=== PATIENT | male | born 1970 | race Caucasian/White ===

== ENCOUNTER 2021-03-11 13:26 | Inpatient (IN) | payer BC, SELFPAY ==
[2021-03-11] VITALS (22 sets, daily range): BP systolic 128–166; BP diastolic 62–119; PULSE 57–106; RESP 16–41; TEMP 37.1–37.3; O2SAT 88–95; BMI 34.2
--- NOTE | 2021-03-11 13:34 | XR_ITS ---
WS: [id number] PORTABLE CHEST HISTORY: dyspnea, cough COMPARISON: None available. Lungs are clear and well expanded. No pleural effusion or pneumothorax. Cardiac size: Normal. Mediastinum/Aorta: Normal mediastinum. No osseous abnormality seen. XR/XR chest 1V portable [id number] IMPRESSION: Unremarkable portable chest.
[2021-03-11] MEDS: albuterol 8 gm MDI 2 PUFF INHALATION (13:56)
[2021-03-11 14:09] LABS: ABG PCO2 31.4 mmHg (35-45); Alveolar-Arterial Oxygen Gradi 21.8 mmHg (5-10); Arterial Blood Gas Hematocrit 47.9 % (42-52); Base Excess ABG 1.7 mmol/L (-2.0-2.0); Blood Gas Allen Test Pos; Blood Gas Operator Identificat CAK; Blood Gas Sample Site Radial, left; Blood Gas Sample Type Arterial; Carboxyhemoglobin 0.7 %THgb (0.4-20.1); HCO3 ABG 24.2 mmol/L (22-26); HGB O2 Sat 94.8 % (95-100); Ionized Calcium Level - ABG 1.1 mmol/L (1.1-1.4); Methemoglobin 0.4 % (0.4-1.5); Oxygen Device NC; Oxygen Saturation ABG 95.8; PO2 ABG 76.6 mmHg (80.0-100.0); Potassium Level - ABG 3.1 mmol/L (3.5-5.0); Total Hemoglobin 15.6 g/dL (14-18)
[2021-03-11] MEDS: dexamethasone 4 mg/mL INJ 6 MG IVP (14:12)
[2021-03-11 14:18] LABS: Alanine Aminotransferase 84 U/L (0-41); Albumin Level 3.7 g/dL (3.5-5.2); Alkaline Phosphatase 80 IU/L (40-130); Anion Gap 19.6 (5-19); Aspartate Amino Transferase 91 U/L (0-40); Blood Urea Nitrogen 10 mg/dL (6-20); Calcium 7.8 mg/dL (8.5-10.5); Carbon Dioxide 22 mmol/L (22-29); Chloride 97 mmol/L (98-107); Globulin 2.7 g/dL (1.3-4.6); Glomerular Filtration Rate 140.9 mL/min (90-130); Glucose 135 mg/dL (65-115); Osmolality Calculated 281 mOsm/kg (285-295); Potassium 3.6 mmol/L (3.5-5.1); Sodium 135 mmol/L (136-145); Total Bilirubin 0.7 mg/dL (0.15-1.2); Total Protein 6.4 g/dL (6.6-8.7)
[2021-03-11 14:19] LABS: Lactic Sepsis W/Reflex 1.7 mmol/L (0.5-2.2)
--- NOTE | 2021-03-11 14:21 | ED_ITS ---
HPI - COVID General: Chief Complaint: COVID symptoms Stated Complaint: DYSPNEA, COVID + Time Seen by Provider: 03/11/21 13:34 Triage information: Has fever, cough or shortness of breath . Exposure to COVID + person last 14 days History of Present Illness: HPI Narrative: 51-year-old male presents emergency room with complaint of increasing shortness of breath and cough along with an ostomy and diarrhea began approximately 1 week ago he tested positive for Covid then he had symptoms for for 5 days prior to that. MD complaint: known COVID positive Prior covid testing: yes, results known Prior testing date: 03/05/21 COVID 19 common symptoms: positive fever(s), chills, cough, productive cough, dyspnea, fatigue, loss of sense of smell and/or taste, nasal congestion, vomiting and diarrhea COVID 19 other sytmptoms: positive chest pain, requiring oxygen, requiring more oxygen, respiratory distress and lethargy Onset (ago): day(s) (-) Severity: moderate and rapidly worsening Pertinent comorbid conditions: obesity Treatment prior to arrival: none, steroids and oxygen COVID Results: No Data to Display Review of Systems Const: Reports: fever(s), chills and fatigue ENMT: Reports: nasal congestion Card: Reports: chest pain Resp: Reports: dyspnea and productive cough GI: Reports: vomiting and diarrhea : Denies: flank pain, dysuria, urinary frequency or urinary urgency Skin/Breast: Denies: rash or pruritus Physical Exam Const: COMMON NORMALS: no acute distress GENERAL APPEARANCE: cooperative and comfortable ORIENTATION/CONSCIOUSNESS: Yes awake, Yes oriented to person, Yes oriented to place and Yes oriented to time HENMT: COMMON NORMALS: normocephalic, atraumatic and hearing grossly normal bilaterally HEAD & SCALP: normocephalic and atraumatic Resp: EFFORT & INSPECTION: Yes abnormal respiratory pattern, Yes tachypneic, Yes respiratory distress and Yes Actively coughing AUSCULTATION: rales and wheezes Cardio: COMMON NORMALS: regular rhythm and No murmurs present (Cardio) RATE: tachycardic RHYTHM: regular rhythm GI: COMMON NORMALS: Soft to palpation and No hepatosplenomegaly present AUSCULTATION: Yes normoactive bowel sounds PALPATION: Yes Soft to palpation, No Tenderness to palpation present (GI), No Guarding due to palpation present (GI) and Yes No hepatosplenomegaly present Extremity: COMMON NORMALS: normal to inspection, capillary refill normal, no clubbing, cyanosis or edema, no calf tenderness and no pedal edema Neuro: SENSORIUM/ORIENTATION: Yes oriented to person, Yes oriented to place and Yes oriented to time Skin: COMMON NORMALS: no rashes or lesions noted GENERAL SKIN EXAM: no rashes or lesions noted Course Vital Signs: Vital signs: Vital Signs Temperature 98.6 F 03/12/21 04:00 Pulse Rate 56 L 03/12/21 06:00 Respiratory Rate 17 03/12/21 05:32 Blood Pressure 107/75 03/12/21 04:45 Pulse Oximetry 93 03/12/21 05:32 MDM - COVID MDM Narrative: Medical decision making narrative: Worsening Covid pneumonitis with hypoxia requiring oxygen supplementation approximately 10 days into course of symptoms. Recommend patient be admitted discussed the hospitalist orders written start remdesivir as well as dexamethasone continue oxygen support. Lab Data: Labs: Lab Results 03/11/21 03/11/21 03/11/21 Range/Units 13:42 13:42 13:42 WBC 8.7 (4.0-10.0) 10^3/ uL RBC 6.61 H (4.1-5.3) 10^6/u L Hgb 19.1 H (11.7-16.6) g/dL Hct 52.8 H (42.0-52.0) % MCV 79.9 L (80-94) fL MCH 28.9 (28.0-34.0) pg MCHC 36.2 H (30.0-36.0) g/dL RDW 13.0 (12.1-15.1) % Plt Count 217 (130-400) 10^3/c mm MPV 10.2 (7.4-10.4) fL Neut % (Auto) 81.3 % Lymph % (Auto) 14.4 % Power % (Auto) 3.2 % Eos % (Auto) 0.1 % Baso % (Auto) 0.2 % Neut # (Auto) 7.09 (1.8-7.7) 10^3/u L Lymph # (Auto) 1.3 (0.8-4.8) 10^3/u L Power # (Auto) 0.3 (0.2-0.9) 10^3/u L Eos # (Auto) 0.0 (0.0-0.8) 10^3/u L Baso # (Auto) 0.0 (0.0-0.1) 10^3/u L Nucleated RBC % (a uto) 0 % Nucleated RBCs # 0.0 /100WBC D-Dimer Cancelled Specimen Type Sample Site ABG pH (7.35-7.45) ABG pCO2 (35-45) mmHg ABG pO2 (80.0-100.0) mmH g ABG HCO3 (22-26) mmol/L ABG O2 Saturation ABG Base Excess (-2.0-2.0) mmol/ L Aneesh Test A-a O2 Gradient (5-10) mmHg Hematocrit (42-52) % Hgb O2 Saturation (95-100) % Carboxyhemoglobin (0.4-20.1) %THgb Methemoglobin (0.4-1.5) % Total Hemoglobin (14-18) g/dL Ionized Calcium (1.1-1.4) mmol/L O2 Delivery Device O2 Liters/Min % FiO2 % Blueprint Machine Operator ID Sodium 135 L (136-145) mmol/L Potassium 3.6 (3.5-5.1) mmol/L Chloride 97 L (98-107) mmol/L Carbon Dioxide 22 (22-29) mmol/L Anion Gap 19.6 H (5-19) BUN 10 (6-20) mg/dL Creatinine 0.6 L (0.7-1.2) mg/dL GFR Calculation 140.9 H (90-130) mL/min Glucose 135 H (65-115) mg/dL Calculated Osmolal ity 281 L (285-295) mOsm/k g Lactic Acid (0.5-2.2) mmol/L Calcium 7.8 L (8.5-10.5) mg/dL Total Bilirubin 0.7 (0.15-1.2) mg/dL AST 91 H (0-40) U/L ALT 84 H (0-41) U/L Alkaline Phosphata se 80 (40-130) IU/L C-Reactive Protein (0.0-4.9) mg/L Total Protein 6.4 L (6.6-8.7) g/dL Albumin 3.7 (3.5-5.2) g/dL Globulin 2.7 (1.3-4.6) g/dL 03/11/21 03/11/21 03/11/21 Range/Units 13:42 13:42 13:45 WBC (4.0-10.0) 10^3/ uL RBC (4.1-5.3) 10^6/u L Hgb (11.7-16.6) g/dL Hct (42.0-52.0) % MCV (80-94) fL MCH (28.0-34.0) pg MCHC (30.0-36.0) g/dL RDW (12.1-15.1) % Plt Count (130-400) 10^3/c mm MPV (7.4-10.4) fL Neut % (Auto) % Lymph % (Auto) % Power % (Auto) % Eos % (Auto) % Baso % (Auto) % Neut # (Auto) (1.8-7.7) 10^3/u L Lymph # (Auto) (0.8-4.8) 10^3/u L Power # (Auto) (0.2-0.9) 10^3/u L Eos # (Auto) (0.0-0.8) 10^3/u L Baso # (Auto) (0.0-0.1) 10^3/u L Nucleated RBC % (a uto) % Nucleated RBCs # /100WBC D-Dimer 1.72 H Specimen Type Sample Site ABG pH (7.35-7.45) ABG pCO2 (35-45) mmHg ABG pO2 (80.0-100.0) mmH g ABG HCO3 (22-26) mmol/L ABG O2 Saturation ABG Base Excess (-2.0-2.0) mmol/ L Aneesh Test A-a O2 Gradient (5-10) mmHg Hematocrit (42-52) % Hgb O2 Saturation (95-100) % Carboxyhemoglobin (0.4-20.1) %THgb Methemoglobin (0.4-1.5) % Total Hemoglobin (14-18) g/dL Ionized Calcium (1.1-1.4) mmol/L O2 Delivery Device O2 Liters/Min % FiO2 % Blueprint Machine Operator ID Sodium (136-145) mmol/L Potassium (3.5-5.1) mmol/L Chloride (98-107) mmol/L Carbon Dioxide (22-29) mmol/L Anion Gap (5-19) BUN (6-20) mg/dL Creatinine (0.7-1.2) mg/dL GFR Calculation (90-130) mL/min Glucose (65-115) mg/dL Calculated Osmolal ity (285-295) mOsm/k g Lactic Acid 1.7 (0.5-2.2) mmol/L Calcium (8.5-10.5) mg/dL Total Bilirubin (0.15-1.2) mg/dL AST (0-40) U/L ALT (0-41) U/L Alkaline Phosphata se (40-130) IU/L C-Reactive Protein 53.2 H (0.0-4.9) mg/L Total Protein (6.6-8.7) g/dL Albumin (3.5-5.2) g/dL Globulin (1.3-4.6) g/dL 03/11/21 Range/Units 13:57 WBC (4.0-10.0) 10^3/ uL RBC (4.1-5.3) 10^6/u L Hgb (11.7-16.6) g/dL Hct (42.0-52.0) % MCV (80-94) fL MCH (28.0-34.0) pg MCHC (30.0-36.0) g/dL RDW (12.1-15.1) % Plt Count (130-400) 10^3/c mm MPV (7.4-10.4) fL Neut % (Auto) % Lymph % (Auto) % Power % (Auto) % Eos % (Auto) % Baso % (Auto) % Neut # (Auto) (1.8-7.7) 10^3/u L Lymph # (Auto) (0.8-4.8) 10^3/u L Power # (Auto) (0.2-0.9) 10^3/u L Eos # (Auto) (0.0-0.8) 10^3/u L Baso # (Auto) (0.0-0.1) 10^3/u L Nucleated RBC % (a uto) % Nucleated RBCs # /100WBC D-Dimer Specimen Type Arterial Sample Site Radial, left ABG pH 7.50 H (7.35-7.45) ABG pCO2 31.4 L (35-45) mmHg ABG pO2 76.6 L (80.0-100.0) mmH g ABG HCO3 24.2 (22-26) mmol/L ABG O2 Saturation 95.8 ABG Base Excess 1.7 (-2.0-2.0) mmol/ L Aneesh Test Pos A-a O2 Gradient 21.8 H (5-10) mmHg Hematocrit 47.9 (42-52) % Hgb O2 Saturation 94.8 L (95-100) % Carboxyhemoglobin 0.7 (0.4-20.1) %THgb Methemoglobin 0.4 (0.4-1.5) % Total Hemoglobin 15.6 (14-18) g/dL Ionized Calcium 1.1 (1.1-1.4) mmol/L O2 Delivery Device Nc O2 Liters/Min 5.0 % FiO2 40.0 % Blueprint Machine Operator ID Cak Sodium 135.0 (136-145) mmol/L Potassium 3.1 L (3.5-5.1) mmol/L Chloride (98-107) mmol/L Carbon Dioxide (22-29) mmol/L Anion Gap (5-19) BUN (6-20) mg/dL Creatinine (0.7-1.2) mg/dL GFR Calculation (90-130) mL/min Glucose 149.0 H (65-115) mg/dL Calculated Osmolal ity (285-295) mOsm/k g Lactic Acid (0.5-2.2) mmol/L Calcium (8.5-10.5) mg/dL Total Bilirubin (0.15-1.2) mg/dL AST (0-40) U/L ALT (0-41) U/L Alkaline Phosphata se (40-130) IU/L C-Reactive Protein (0.0-4.9) mg/L Total Protein (6.6-8.7) g/dL Albumin (3.5-5.2) g/dL Globulin (1.3-4.6) g/dL COVID Results: No Data to Display Discharge Plan Discharge Patient Disposition: Admitted As Inpatient Admit Provider: Tika Olivas Clinical Impression: Pneumonia due to COVID-19 virus Condition: Stable Coding Level of Care Code ED Trailer Tank Truck Driver for Chg Fwd Exam Detailed
[2021-03-11 14:27] LABS: Basophils % 0.2 %; Eosinophils % 0.1 %; Hematocrit 52.8 % (42.0-52.0); Hemoglobin 19.1 g/dL (11.7-16.6); Lymphocytes # 1.3 10^3/uL (0.8-4.8); Lymphocytes % 14.4 %; Mean Corpuscular HGB Conc 36.2 g/dL (30.0-36.0); Mean Corpuscular Hemoglobin 28.9 pg (28.0-34.0); Mean Corpuscular Volume 79.9 fL (80-94); Mean Platelet Volume 10.2 fL (7.4-10.4); Monocytes # 0.3 10^3/uL (0.2-0.9); Monocytes % 3.2 %; Neutrophils # 7.09 10^3/uL (1.8-7.7); Neutrophils % 81.3 %; Nucleated Red Blood Cells % 0 %; Platelet Count 217 10^3/cmm (130-400); Red Blood Count 6.61 10^6/uL (4.1-5.3); White Blood Count 8.7 10^3/uL (4.0-10.0)
[2021-03-11 14:29] LABS: D Dimer 1.72 ug/mIFEU (0-0.59)
[2021-03-11] MEDS: remdesivir 200 MG in sodium chloride 0.9% (100 ml) 100 ML 100 MG IV (15:35)
--- NOTE | 2021-03-11 17:33 | CTR_ITS ---
PROCEDURE INFORMATION: Exam: CTA Chest With Contrast Exam date and time: 03/11/2021 6:01 PM Age: 51 years old Clinical indication: Shortness of breath; Additional info: Evalute for pe TECHNIQUE: Imaging protocol: Computed tomographic angiography of the chest with contrast. 3D rendering (Not supervised by radiologist): MIP and/or 3D reconstructed images were created by the technologist. Total images: 907 Radiation optimization: All CT scans at this facility use at least one of these dose optimization techniques: automated exposure control; mA and/or kV adjustment per patient size (includes targeted exams where dose is matched to clinical indication); or iterative reconstruction. Contrast material: OMNI 350; Contrast volume: 89 ml; Contrast route: INTRAVENOUS (IV); COMPARISON: CR XR chest 1V portable [id number] 03/11/2021 2:26 PM RADIATION DOSE METRICS: Total DLP (mGy-cm): 1156.11 FINDINGS: Pulmonary arteries: No visible evidence of pulmonary embolism/pulmonary arterial thrombus. Aorta: The thoracic aorta is nonaneurysmal. No visible intimal flap or dissection. Lungs: Bilateral patches of ground-glass interstitial lung disease without evidence of significant consolidation, greatest involvement bilateral upper lobes and left lower lobe. Involvement of all lobes evident. Pattern consistent with active interstitial pneumonitis. In light of the current epidemic consideration might be given to Covid-19 pneumonitis. Pleural spaces: Unremarkable. No pneumothorax. No pleural effusion. Heart: No cardiomegaly. No visible pericardial effusion. No visible coronary artery disease. Lymph nodes: Marginally prominent middle mediastinal and hilar lymph nodes most likely reactive. Bones/joints: No visible active or acute osseous pathology. Mild scoliotic curvature. Degenerative disease of the spine with spondylosis deformans. Soft tissues: Unremarkable. CT/CT angio chest PE protcl [id number] IMPRESSION: 1. No visible evidence of pulmonary embolism/pulmonary arterial thrombus. 2. Bilateral interstitial pneumonitis. 3. In light of the current epidemic consideration might be given to Covid-19 pneumonitis. 4. Marginally prominent middle mediastinal and hilar lymph nodes most likely reactive. Radiation Dose CTDIVOL = (mGy): DLP = 1156.11 (mGy-cm)
--- NOTE | 2021-03-11 17:37 | PM.HP ---
Providers/Chief Complaint Admitting Physician: Tika Olivas MD Chief Complaint: DYSPNEA, COVID + History of Present Illness Hannah Archer is a 51 year old male with no significant PMH diagnosed with COVID 19 infection one week ago after one week of symptoms which included cough, shortness of breath, with sputum production, fever and diarrhea. Now presenting with worsened dyspnea and new 02 requirement of 6lpm on NC. CXR with B/L infiltrates. elevated d dimer. He is unvaccinated. Review of Systems General: Reports: 10 or more systems reviewed and unremarkable except in HPI and below Const: Reports: fever(s), chills and body aches Eyes: Denies: change in vision, blurry vision or photophobia ENMT: Reports: hoarseness; Denies: throat pain, enlarged tonsils, odynophagia or nasal congestion Card: Denies: chest pain, palpitations, irregular heart rhythm, edema, swelling of feet/ankles, lightheadedness, pre-syncope, dyspnea on exertion or orthopnea Resp: Reports: dyspnea and productive cough; Denies: non-productive cough, wheezing, stridor, pain on inspiration, change in phlegm color, hemoptysis or chest congestion GI: Reports: nausea, vomiting and diarrhea; Denies: abdominal pain, hematemesis, coffee ground emesis, dysphagia, heartburn, constipation, GI cramping, change in stool character, hematochezia or melena : Denies: flank pain, dysuria, urinary frequency, urinary urgency, urinary hesitancy or hematuria Musc: Denies: neck pain, back pain, extremity pain, joint swelling, joint warmth or deformity Neuro: Denies: headache(s), numbness in extremities, weakness in extremities, sensory changes, difficulty walking, frequent falls, dizziness, vertigo, behavioral changes, Slurred speech present or seizure-like activity Psych: Denies: anxiety, depression, suicidal ideation or homicidal ideation Endo: Denies: polyuria, polydipsia, tired all the time, cold intolerance or hot flashes Perez/Lymph: Denies: easy bruising or easy bleeding Medications/Allergies Home Medications Medication Instructions Recorded Confirmed Last Taken Type No Known Home Medications 03/11/21 03/11/21 Unknown History Allergies Allergy/AdvReac Type Severity Reaction Status Date / Time No Known Allergies Allergy Unverified 03/11/21 15:13 Vitals/I&O/Wt Last Vital Signs Temp 98.8 F 03/11/21 16:30 Pulse 76 03/11/21 17:08 Resp 26 H 03/11/21 17:00 BP 138/76 03/11/21 17:00 Pulse Ox 91 03/11/21 17:00 03/11/21 03/11/21 03/11/21 06:59 14:59 22:59 Intake Total 100 / 100 Output Total 175 / 175 Balance -75 / -75 Weight last 48 hrs Weight 111.13 kg Physical Exam Narrative: EXAM NARRATIVE: General: No acute distress, AO x3 HEENT: PERRLA, pupils bilaterally equal and reactive, pallors not present Chest: Clear to asucultation B/L CVS: S1-S2 regular, no murmurs, no tachycardia, no gallops, no rubs Abdomen: Soft, nontender, no organomegaly, bowel sounds present Neuro: No focal deficits, no facial deformity, AO x3, power 5/5 in all limbs Extremities: No clubbing cyanosis or edema Data : 03/11/21 13:42 03/11/21 13:42 A&P Assessment and plan (1) Pneumonia due to COVID-19 virus: Admit to ICU remdisivir 200mg x 1 followed by 100mg daily for total 5 days dexamtheasone 6mg IVP qd empiric ceftriaxone advair, spiriva inhalers Full dose lovenox until CTA can exclude PE check CRP, LDH, D dimer, ferritin and LSH supplemental 02 to keep saturation >92% GI ppx: protonix dvt ppx: lovenox Status: Acute Attestations Medical Necessity Statement*: COVID 19 pneumonia, needs iv antivirals and steroids Coding Level of Care Code Acute Director Career Services for [facility] Diagnoses Pneumonia due to COVID-19 virus U07.1; J12.82
[2021-03-11 17:55] LABS: C Reactive Protein 53.2 mg/L (0.0-4.9)
[2021-03-11] MEDS: iohexol 350 mg/mL 100 mL Btl IV ×2 (18:27→18:29)
[2021-03-11] MEDS: enoxaparin 120 mg/0.8 mL Syringe 110 MG SUBCUT (18:46)
[2021-03-11] MEDS: cefTRIAXone 1,000 MG in sodium chloride 0.9% (plus) 50 ML 100 MG IV (18:46)
[2021-03-12] VITALS (107 sets, daily range): BP systolic 98–161; BP diastolic 37–112; PULSE 48–86; RESP 13–35; TEMP 36.7–37.6; O2SAT 85–96
[2021-03-12] MEDS: calcium carbonate 500 mg Chew Tablet 1000 MG PO (02:38)
[2021-03-12] MEDS: enoxaparin 120 mg/0.8 mL Syringe 110 MG SUBCUT ×2 (05:00→18:06)
[2021-03-12 05:12] LABS: ABG PCO2 33.8 mmHg (35-45); ABG PH Result 7.49 (7.35-7.45); Base Excess ABG 2.7 mmol/L (-2.0-2.0); Blood Gas Allen Test Pos; Blood Gas Operator Identificat JB; Blood Gas Sample Site Radial, right; Blood Gas Sample Type Arterial; HCO3 ABG 25.6 mmol/L (22-26); Oxygen Device HAG; PO2 ABG 70.3 mmHg (80.0-100.0)
[2021-03-12 05:26] LABS: Basophils % 0.1 %; Lymphocytes # 0.9 10^3/uL (0.8-4.8); Lymphocytes % 10.4 %; Mean Corpuscular HGB Conc 33.3 g/dL (30.0-36.0); Mean Corpuscular Hemoglobin 27.9 pg (28.0-34.0); Mean Corpuscular Volume 83.8 fL (80-94); Mean Platelet Volume 9.9 fL (7.4-10.4); Monocytes # 0.4 10^3/uL (0.2-0.9); Monocytes % 4.8 %; Nucleated Red Blood Cells % 0 %; Platelet Count 299 10^3/cmm (130-400); Red Blood Count 5.37 10^6/uL (4.1-5.3); Red Cell Distribution Width 12.9 % (12.1-15.1); White Blood Count 8.2 10^3/uL (4.0-10.0)
[2021-03-12 05:32] LABS: D Dimer 1.61 ug/mIFEU (0-0.59)
[2021-03-12 05:38] LABS: Alanine Aminotransferase 95 U/L (0-41); Albumin Level 3.5 g/dL (3.5-5.2); Alkaline Phosphatase 77 IU/L (40-130); Anion Gap 15.2 (5-19); Aspartate Amino Transferase 80 U/L (0-40); Blood Urea Nitrogen 9 mg/dL (6-20); Calcium 8.7 mg/dL (8.5-10.5); Carbon Dioxide 28 mmol/L (22-29); Chloride 96 mmol/L (98-107); Globulin 3.7 g/dL (1.3-4.6); Glucose 150 mg/dL (65-115); Osmolality Calculated 282 mOsm/kg (285-295); Potassium 4.2 mmol/L (3.5-5.1); Sodium 135 mmol/L (136-145); Total Bilirubin 0.6 mg/dL (0.15-1.2); Total Protein 7.2 g/dL (6.6-8.7)
[2021-03-12 05:40] LABS: C Reactive Protein 70.2 mg/L (0.0-4.9); Lactate Dehydrogenase 847 U/L (135-225)
[2021-03-12 05:49] LABS: Slide Review Slide Review Perform
[2021-03-12 05:53] LABS: Ferritin 1624 ng/mL (30-400)
[2021-03-12] MEDS: pantoprazole DR 40 mg Tablet PO (08:40)
--- NOTE | 2021-03-12 09:45 | PC.NURSE ---
Pt assessment completed as charted. No c/o pain. Pt encouraged to semi prone on side d/t decreased oxygenation. Remains on HFNC. Pt O2 sat improves with positioning. Pt AAOx4, makes all needs known. Uses urinal for elimination. SCD's in place. No other needs noted at this time. Will continue to monitor.
--- NOTE | 2021-03-12 09:54 | PC.CHAP ---
Pastoral Care Encounter/Spiritual Assessment Type of Contact [] Declined mounter clarinets visit [] Patient/Family/Request visit [] Outpatient visit [] Follow-up visit [] Physician referral [] Code/Alert [x] Routine visit [] Staff referral [] Actively dying [] Patient sleeping [] Family support [] [] Out of room [] Palliative care [] [] Receiving care in room [] Pre-surgical visit [] Trauma [] Long length of stay [x] ICU visit [] Other: Relational/Emotional Strength [] Patient feels connected with others/family/visitors/staff [] Distress [] Loneliness/isolation [] Abandonment Spirituality of Patient [] Person of Yesika [] Attends Jain of their Yesika [] Believes in Prayer [] Reads Bible or Sabianism materials [] There are Spiritual issues to be addressed Viscera Washer Interventions [x] Prayer [] Active listening [] Non-anxious presence [] Spiritual/emotional support [] Crisis/trauma care [] Spiritual counseling [] Bereavement support [] Provided bereavement packet [] Provided Bible/devotional materials [] Provided toy/stuffed animal, coloring book to patient or family member [] Provided Communion [] Anointing/[place] [] Salvation [x] Completed spiritual assessment [] Other: Impact on Illness or Injury [] Angry [] Fearful [] Anxious [] Often cries [] Exhaustion [] Unable to work [] Unable to attend pentecostalism [] Unable to walk/stand [] Unable to read [] Unable to drive [] Unable to eat/drink [] Unable to sleep [] Unable to be with family [] Patient intubated [] Other: Summary Time spent with patient
[2021-03-12] MEDS: acetaminophen 325 mg Tablet 650 MG PO ×2 (11:21→22:12)
[2021-03-12] MEDS: dexamethasone 4 mg/mL INJ 6 MG IVP (14:08)
--- NOTE | 2021-03-12 15:24 | P.PN_ITS ---
Subjective Subjective: Interval history: overnight 02 requirements went up to 70% fi02 on otpiflow Medications: Reviewed: Yes Vitals/I&O/Wt Last Vital Signs Temp 98.0 F 03/13/21 12:00 Pulse 93 03/13/21 15:00 Resp 24 H 03/13/21 15:00 BP 134/76 03/13/21 15:00 Pulse Ox 91 03/13/21 15:00 03/13/21 03/13/21 03/13/21 06:59 14:59 22:59 Intake Total 228 / 1096 420 / 420 Output Total 700 / 700 Balance 228 / -154 -280 / -280 Weight last 48 hrs Weight 115.485 kg Weight 114.94 kg Physical Exam Narrative: EXAM NARRATIVE: General: No acute distress, AO x3 HEENT: PERRLA, pupils bilaterally equal and reactive, pallors not present Chest: Clear to asucultation B/L CVS: S1-S2 regular, no murmurs, no tachycardia, no gallops, no rubs Abdomen: Soft, nontender, no organomegaly, bowel sounds present Neuro: No focal deficits, no facial deformity, AO x3, power 5/5 in all limbs Extremities: No clubbing cyanosis or edema Data : 03/13/21 05:03 03/13/21 05:03 A&P Assessment and plan (1) Pneumonia due to COVID-19 virus: Overnight with increasing 02 requirements Continue remdisivir 200mg x 1 followed by 100mg daily for total 5 days dexamtheasone 6mg IVP qd CRP noted at 70 today, trend with am labs, if trends up or 02 requirements increasing may consider tocilizumab empiric ceftriaxone advair, spiriva inhalers Full dose lovenox until CTA can exclude PE supplemental 02 to keep saturation >92% GI ppx: protonix dvt ppx: lovenox Status: Acute Attestations Medical Necessity Statement*: covid 19 pneumonia, increasing 02 requirements Coding Level of Care Code Acute Computer Technologist for [facility] Diagnoses Pneumonia due to COVID-19 virus U07.1; J12.82
[2021-03-12] MEDS: remdesivir 100 MG in sodium chloride 0.9% (100 ml) 100 ML IV (15:48)
[2021-03-12] MEDS: cefTRIAXone 1,000 MG in sodium chloride 0.9% (plus) 50 ML 100 MG IV (17:30)
--- NOTE | 2021-03-12 18:35 | PC.NURSE ---
Resting in bed. No issues noted. No c/o pain or SOB. HFNC settings remain the same. Report given to oncoming nurse.
[2021-03-13] VITALS (106 sets, daily range): BP systolic 91–153; BP diastolic 43–85; PULSE 43–101; RESP 11–36; TEMP 36.4–37.1; O2SAT 76–97
[2021-03-13] MEDS: enoxaparin 120 mg/0.8 mL Syringe 110 MG SUBCUT ×2 (05:06→18:08)
[2021-03-13 05:22] LABS: Basophils % 0.1 %; Hematocrit 43.5 % (42.0-52.0); Hemoglobin 14.2 g/dL (11.7-16.6); Lymphocytes % 6.4 %; Mean Corpuscular HGB Conc 32.6 g/dL (30.0-36.0); Mean Corpuscular Hemoglobin 27.9 pg (28.0-34.0); Mean Corpuscular Volume 85.5 fL (80-94); Mean Platelet Volume 10.1 fL (7.4-10.4); Monocytes # 0.5 10^3/uL (0.2-0.9); Monocytes % 3.2 %; Neutrophils # 13.59 10^3/uL (1.8-7.7); Neutrophils % 88.3 %; Nucleated Red Blood Cells % 0 %; Platelet Count 361 10^3/cmm (130-400); Red Blood Count 5.09 10^6/uL (4.1-5.3); Red Cell Distribution Width 12.9 % (12.1-15.1); White Blood Count 15.4 10^3/uL (4.0-10.0)
[2021-03-13 05:44] LABS: Alanine Aminotransferase 134 U/L (0-41); Albumin Level 3.1 g/dL (3.5-5.2); Alkaline Phosphatase 65 IU/L (40-130); Anion Gap 14.6 (5-19); Aspartate Amino Transferase 83 U/L (0-40); Blood Urea Nitrogen 14 mg/dL (6-20); C Reactive Protein 30.9 mg/L (0.0-4.9); Calcium 8.4 mg/dL (8.5-10.5); Carbon Dioxide 29 mmol/L (22-29); Chloride 100 mmol/L (98-107); Glucose 138 mg/dL (65-115); Osmolality Calculated 291 mOsm/kg (285-295); Potassium 4.6 mmol/L (3.5-5.1); Sodium 139 mmol/L (136-145); Total Bilirubin 0.4 mg/dL (0.15-1.2); Total Protein 6.1 g/dL (6.6-8.7)
--- NOTE | 2021-03-13 08:28 | PC.CHAP ---
Pastoral Care Encounter/Spiritual Assessment Type of Contact [] Declined baffle installer visit [] Patient/Family/Request visit [] Outpatient visit [] Follow-up visit [] Physician referral [] Code/Alert [x] Routine visit [] Staff referral [] Actively dying [] Patient sleeping [] Family support [] [] Out of room [] Palliative care [] [] Receiving care in room [] Pre-surgical visit [] Trauma [] Long length of stay [x ICU visit [x] Other: isolation ,,, setting up in chair Relational/Emotional Strength [] Patient feels connected with others/family/visitors/staff [] Distress [] Loneliness/isolation [] Abandonment Spirituality of Patient [] Person of Yesika [] Attends Jain of their Yesika [] Believes in Prayer [] Reads Bible or Jain materials [] There are Spiritual issues to be addressed Chemical Operator Interventions [x] Prayer [] Active listening [] Non-anxious presence [] Spiritual/emotional support [] Crisis/trauma care [] Spiritual counseling [] Bereavement support [] Provided bereavement packet [] Provided Bible/devotional materials [] Provided toy/stuffed animal, coloring book to patient or family member [] Provided Communion [] Anointing/[place] [] Salvation [x] Completed spiritual assessment [] Other: Impact on Illness or Injury [] Angry [] Fearful [] Anxious [] Often cries [] Exhaustion [] Unable to work [] Unable to attend lutheran [] Unable to walk/stand [] Unable to read [] Unable to drive [] Unable to eat/drink [] Unable to sleep [] Unable to be with family [] Patient intubated [] Other: Summary Time spent with patient
[2021-03-13] MEDS: pantoprazole DR 40 mg Tablet PO (09:41)
--- NOTE | 2021-03-13 11:41 | P.PN_ITS ---
Subjective Subjective: Interval history: 51-year-old male with past medical history significant for COVID-19 infection diagnosed 1 week prior presented to the hospital with respiratory distress. Upon arrival patient was noted to be hypoxic requiring 6 L of O2 via nasal cannula. Chest x-ray showed bilateral infiltrative process. Patient was noted to have elevated D-dimer and thus a CT angio of chest PE protocol was performed which did not show any evidence of pulmonary embolism in again noted to have bilateral interstitial pneumonitis in addition to marginally prominent middle mediastinal and hilar lymph nodes likely to be reactive. Laboratory workup on arrival showed a WBC of 8.7, hemoglobin of 19.1, hematocrit of 52.8 and a platelet count of 217. Sodium 135, potassium 3.6, chloride 97, bicarb 22, BUN 10 and creatinine of 0.6. Glucose of 135. Lactic acid of 1.7. Arterial blood gases showed a pH of 7.50, pCO2 of 31.4, PO2 of 76.6 and a bicarb of 24.2. This was while on 5 L of O2. Patient was started on Remdesivir 5 day protocol in addition to Decadron 6 mg IV q24hr. Upon admission patient was noted to have have increasing respiratory distress with hypoxia. He was eventually requiring high flow NC. Subjective: 03/13/21 Patient was on airvo. No new clinical events overnight. No fever, or chills. Medications: Reviewed: Yes Vitals/I&O/Wt Last Vital Signs Temp 97.6 F 03/13/21 08:30 Pulse 71 03/13/21 11:38 Resp 16 03/13/21 11:38 BP 138/84 03/13/21 09:45 Pulse Ox 93 03/13/21 11:38 03/12/21 03/13/21 03/13/21 22:59 06:59 14:59 Intake Total 628 / 868 228 / 1096 300 / 300 Output Total 1250 / 1250 450 / 450 Balance -622 / -382 228 / -154 -150 / -150 Weight last 48 hrs Weight 115.485 kg Weight 114.94 kg Weight 111.13 kg Physical Exam Narrative: EXAM NARRATIVE: General - Alert, awake and oriented x 3 on HFNC HEENT: Grossly unremarkable CVS : RRR Chest : CTABL ABD : Soft NT,ND Ext : No edema Data : 03/13/21 05:03 03/13/21 05:03 A&P Assessment and plan (1) Pneumonia due to COVID-19 virus: CTA chest PE protocol - negative for PE, Bilateral pneumoniitis Remdesivir 5 day protocol Decadron 6 mg daily x 10 days total Empirically on Rocephin Wean airvo Will likely require discharge with home o2 Check COVID labs in am Consider pulmonary consult if worsening Continue droplet precautions. Status: Acute Attestations Medical Necessity Statement*: Will require furhter hospitalization for management of COVID 19 related hypoxia/pneumonia Time Spent in Patient Care: Greater than 35 minutes (>than 50% of time spent in counselling and/or direct pt care on unit) . Critical Care Time: Critical Care Time (min): 45 Coding Level of Care Code Acute Movie Extra for Jeanette Yoon Diagnoses Pneumonia due to COVID-19 virus U07.1; J12.82
[2021-03-13] MEDS: ondansetron 2 mg/ML SDV 2 mL 4 MG IVP (12:07)
[2021-03-13] MEDS: morphine 4 mg/mL SDV 1 mL 2 MG IVP (13:02)
[2021-03-13] MEDS: dexamethasone 4 mg/mL INJ 6 MG IVP (13:48)
[2021-03-13] MEDS: remdesivir 100 MG in sodium chloride 0.9% (100 ml) 100 ML IV (16:34)
[2021-03-13] MEDS: cefTRIAXone 1,000 MG in sodium chloride 0.9% (plus) 50 ML 100 MG IV (18:06)
--- NOTE | 2021-03-13 19:50 | PC.NURSE ---
Uneventful shift. Patient was up to the chair multiple times today for a total time of about 4 hours. No other changes.
[2021-03-13] MEDS: acetaminophen 325 mg Tablet 650 MG PO (22:41)
[2021-03-14] VITALS (51 sets, daily range): BP systolic 90–146; BP diastolic 49–82; PULSE 44–112; RESP 15–34; TEMP 36.6–37.1; O2SAT 88–96
[2021-03-14] MEDS: enoxaparin 120 mg/0.8 mL Syringe 110 MG SUBCUT ×2 (05:14→17:55)
[2021-03-14] MEDS: ondansetron 2 mg/ML SDV 2 mL 4 MG IVP (08:31)
[2021-03-14] MEDS: pantoprazole DR 40 mg Tablet PO (08:31)
[2021-03-14] MEDS: acetaminophen 325 mg Tablet 650 MG PO ×2 (09:53→20:10)
[2021-03-14] MEDS: dexamethasone 4 mg/mL INJ 6 MG IVP (13:20)
[2021-03-14] MEDS: remdesivir 100 MG in sodium chloride 0.9% (100 ml) 100 ML IV (16:29)
--- NOTE | 2021-03-14 16:53 | P.PN_ITS ---
Subjective Subjective: Interval history: 51-year-old male with past medical history significant for COVID-19 infection diagnosed 1 week prior presented to the hospital with respiratory distress. Upon arrival patient was noted to be hypoxic requiring 6 L of O2 via nasal cannula. Chest x-ray showed bilateral infiltrative process. Patient was noted to have elevated D-dimer and thus a CT angio of chest PE protocol was performed which did not show any evidence of pulmonary embolism in again noted to have bilateral interstitial pneumonitis in addition to marginally prominent middle mediastinal and hilar lymph nodes likely to be reactive. Laboratory workup on arrival showed a WBC of 8.7, hemoglobin of 19.1, hematocrit of 52.8 and a platelet count of 217. Sodium 135, potassium 3.6, chloride 97, bicarb 22, BUN 10 and creatinine of 0.6. Glucose of 135. Lactic acid of 1.7. Arterial blood gases showed a pH of 7.50, pCO2 of 31.4, PO2 of 76.6 and a bicarb of 24.2. This was while on 5 L of O2. Patient was started on Remdesivir 5 day protocol in addition to Decadron 6 mg IV q24hr. Upon admission patient was noted to have have increasing respiratory distress with hypoxia. He was eventually requiring high flow NC. Subjective: 03/13/21 Patient was on airvo. No new clinical events overnight. No fever, or chills. 03/14/21 No new clinical events overnight. Patient noted chills. Medications: Reviewed: Yes Vitals/I&O/Wt Last Vital Signs Temp 98.2 F 03/14/21 16:00 Pulse 68 03/14/21 19:00 Resp 17 03/14/21 19:00 BP 139/82 03/14/21 19:00 Pulse Ox 90 03/14/21 19:00 03/14/21 03/14/21 03/14/21 06:59 14:59 22:59 Intake Total 238 / 1226 300 / 300 600 / 900 Output Total 425 / 1775 550 / 550 300 / 850 Balance -187 / -549 -250 / -250 300 / 50 Weight last 48 hrs Weight 115.485 kg Physical Exam Narrative: EXAM NARRATIVE: General - Alert, awake and oriented x 3 on HFNC HEENT: Grossly unremarkable CVS : RRR Chest : CTABL ABD : Soft NT,ND Ext : No edema Data : 03/13/21 05:03 03/13/21 05:03 A&P Assessment and plan (1) Pneumonia due to COVID-19 virus: Overnight with increasing 02 requirements Continue remdisivir 200mg x 1 followed by 100mg daily for total 5 days dexamtheasone 6mg IVP qd CRP noted at 70 today, trend with am labs, if trends up or 02 requirements increasing may consider tocilizumab empiric ceftriaxone advair, spiriva inhalers Full dose lovenox until CTA can exclude PE supplemental 02 to keep saturation >92% CBC in am Wean HFNC as tolerated. GI ppx: protonix DVT ppx: lovenox Status: Acute Attestations Medical Necessity Statement*: Will require further hospitalization for management of covid 19 related respiratory failure Time Spent in Patient Care: Greater than 35 minutes (>than 50% of time spent in counselling and/or direct pt care on unit) . Critical Care Time: Critical Care Time (min): 35 Coding Level of Care Code Acute Director Of Development And Marketing for [facility] Fwd Diagnoses Pneumonia due to COVID-19 virus U07.1; J12.82
[2021-03-14] MEDS: cefTRIAXone 1,000 MG in sodium chloride 0.9% (plus) 50 ML 100 MG IV (17:54)
--- NOTE | 2021-03-14 19:30 | PC.NURSE ---
Shift summary: Pt started the day off reddened eyes , flushed with frequent moaning and O2 sats upper 80's -low 90's. Morning bedside shift report said he struggled some through the night, required more O2, and his sats were decreasing. Plan were made to let pt rest in bed for the day. Pt did rest on his right side for most of the day. He picked at his meals but he did drink plenty of fluids. He complained of a headache early in the day, acetaminophen given. No further H/A complaints on day shift. Flushing and right eye redness lessened throughout the day. He remained afebrile. He received 3 dose out of 4 of Remdesivir. HIs urine output was adequate byt urine remained cristal colored. No change in Heated high flow settings throughout the day 45L and 72-75% FIO2. He stated he felt better at end of day shift.
[2021-03-14] MEDS: benzonatate 100 mg Capsule PO (20:10)
[2021-03-14] MEDS: temazepam 15 mg Capsule PO (20:54)
[2021-03-15] VITALS (36 sets, daily range): BP systolic 89–136; BP diastolic 48–77; PULSE 41–108; RESP 3–35; TEMP 36.6–37.7; O2SAT 88–96
[2021-03-15] MEDS: enoxaparin 120 mg/0.8 mL Syringe 110 MG SUBCUT ×2 (05:53→17:22)
--- NOTE | 2021-03-15 06:18 | PC.NURSE ---
Patient pulled HHF from nasal cavity, and decreased quickly to 78%. RT increased O2 flow to 80%. Patient fluctuates between mid 80's to low 90% on pulse ox. Some sleep apnea noted, but easily fixed when awakened. Patient rested well. Some dry cough noted at times. New orders received for PRN sleeping aid.
--- NOTE | 2021-03-15 08:15 | PC.NURSE ---
Addendum entered by Veronica Davis RN 03/15/21 10:23: Discussed with pt the benefits of sitting up in chair for as long as possible today, IS and acapello use reinforced. Pt demonstrated IS( reached 1000) and acapello use. Original Note: Pt OOB to chair. Stand-by to minimal assist needed. Pt tolerating well.
[2021-03-15] MEDS: pantoprazole DR 40 mg Tablet PO (08:23)
--- NOTE | 2021-03-15 09:30 | PC.NURSE ---
Pt stated he is using the Acapello and IS on his own when this nurse just asked. During frequent monitoring pt has not been observed using Acapello and IS.
--- NOTE | 2021-03-15 10:09 | PC.NURSE ---
Pt requested to go back to bed. Discussed with pt the benefits for his breathing of sitting up, his O2 sats 95%, pt stated he could not do it any longer. Bed linens changed. Pt assisted back to bed. Pt encouraged to use Acapella ( he did it twice) and IS ( he did it 6 times, goal of 1500 achieved last two attempts)prior to this nurse exiting room. O2 sats where 86% when he lied down, up to 90% after breathing exercises.
--- NOTE | 2021-03-15 12:14 | PM.PN ---
Subjective Subjective: Interval history: 51-year-old male with past medical history significant for COVID-19 infection diagnosed 1 week prior presented to the hospital with respiratory distress. Upon arrival patient was noted to be hypoxic requiring 6 L of O2 via nasal cannula. Chest x-ray showed bilateral infiltrative process. Patient was noted to have elevated D-dimer and thus a CT angio of chest PE protocol was performed which did not show any evidence of pulmonary embolism in again noted to have bilateral interstitial pneumonitis in addition to marginally prominent middle mediastinal and hilar lymph nodes likely to be reactive. Laboratory workup on arrival showed a WBC of 8.7, hemoglobin of 19.1, hematocrit of 52.8 and a platelet count of 217. Sodium 135, potassium 3.6, chloride 97, bicarb 22, BUN 10 and creatinine of 0.6. Glucose of 135. Lactic acid of 1.7. Arterial blood gases showed a pH of 7.50, pCO2 of 31.4, PO2 of 76.6 and a bicarb of 24.2. This was while on 5 L of O2. Patient was started on Remdesivir 5 day protocol in addition to Decadron 6 mg IV q24hr. Upon admission patient was noted to have have increasing respiratory distress with hypoxia. He was eventually requiring high flow NC. Subjective: 03/13/21 Patient was on airvo. No new clinical events overnight. No fever, or chills. 03/14/21 No new clinical events overnight. Patient noted chills. 03/15/21 No new clinical events overnight. Medications: Reviewed: Yes Vitals/I&O/Wt Last Vital Signs Temp 98.7 F 03/15/21 10:00 Pulse 95 03/15/21 11:25 Resp 21 H 03/15/21 11:25 BP 121/74 03/15/21 10:00 Pulse Ox 93 03/15/21 11:25 03/14/21 03/15/21 03/15/21 22:59 06:59 14:59 Intake Total 600 / 900 350 / 1250 250 / 250 Output Total 300 / 850 650 / 1500 250 / 250 Balance 300 / 50 -300 / -250 0 / 0 Weight last 48 hrs Weight 116.204 kg Physical Exam Narrative: EXAM NARRATIVE: General - Alert, awake and oriented x 3 on HFNC HEENT: Grossly unremarkable CVS : RRR Chest : CTABL ABD : Soft NT,ND Ext : No edema Data : 03/13/21 05:03 03/13/21 05:03 A&P Assessment and plan (1) Pneumonia due to COVID-19 virus: Overnight with increasing 02 requirements Continue remdisivir 200mg x 1 followed by 100mg daily for total 5 days dexamtheasone 6mg IVP qd CRP noted at 70 today, trend with am labs, if trends up or 02 requirements increasing may consider tocilizumab empiric ceftriaxone advair, spiriva inhalers Full dose lovenox until CTA can exclude PE supplemental 02 to keep saturation >92% CBC in am Wean HFNC as tolerated. May give lasix today Repeat labs in am GI ppx: protonix DVT ppx: lovenox Status: Acute Attestations Medical Necessity Statement*: will require further hospitalization for managment of covid-19 related respiratory failure. 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
[2021-03-15] MEDS: acetaminophen 325 mg Tablet 650 MG PO (12:27)
[2021-03-15] MEDS: dexamethasone 4 mg/mL INJ 6 MG IVP (14:22)
[2021-03-15] MEDS: remdesivir 100 MG in sodium chloride 0.9% (100 ml) 100 ML IV (15:55)
--- NOTE | 2021-03-15 17:05 | PC.NURSE ---
Pt assisted out of bed to chair with standby by assist, for the wires and tubing. Pt tolerated well.
[2021-03-15] MEDS: cefTRIAXone 1,000 MG in sodium chloride 0.9% (plus) 50 ML 100 MG IV (17:22)
--- NOTE | 2021-03-15 19:25 | PC.NURSE ---
Report given to AUDRA Melchor.
--- NOTE | 2021-03-15 19:55 | PC.NURSE ---
Addendum entered by Veronica Davis RN 03/17/21 07:47: Pt used IS and Acapello with prompting throughout shift He reached goal of 1500 on IS. several times in a row. He was not seen using either on his own without staff prompting. Original Note: Shift summary: Pt afebrile. Pt remained on Heated high flow, 50L and 80%. His O2 sats have stayed 91% or better throughout shift, except for a few minutes of pt moving around in the bed. He has been out of bed twice today. First time for over 2 hours. Currently he is still sitting up in chair for nearly 3 hours now. Pt able to transfer without difficulty, only needs help with tubing and wires. His face has been flushed today but he has been afebrile. Lungs sounds have more air movement at end of shift. His appetite has improved he ate most of his dinner. He has shown more interest in other activities besides napping today. Urine output has been adequate but remains darker in color.
[2021-03-15] MEDS: temazepam 15 mg Capsule PO (20:30)
[2021-03-16] VITALS (31 sets, daily range): BP systolic 105–143; BP diastolic 56–86; PULSE 57–112; RESP 14–33; TEMP 36.9–37.4; O2SAT 85–95
[2021-03-16 03:54] LABS: Basophils % 0.3 %; Eosinophils % 0.2 %; Hematocrit 42.2 % (42.0-52.0); Hemoglobin 14.3 g/dL (11.7-16.6); Lymphocytes # 0.8 10^3/uL (0.8-4.8); Mean Corpuscular HGB Conc 33.9 g/dL (30.0-36.0); Mean Corpuscular Hemoglobin 28.1 pg (28.0-34.0); Mean Corpuscular Volume 83.1 fL (80-94); Mean Platelet Volume 10.2 fL (7.4-10.4); Monocytes # 0.4 10^3/uL (0.2-0.9); Monocytes % 2.4 %; Neutrophils # 13.53 10^3/uL (1.8-7.7); Nucleated Red Blood Cells % 0 %; Platelet Count 431 10^3/cmm (130-400); Red Blood Count 5.08 10^6/uL (4.1-5.3); Red Cell Distribution Width 12.6 % (12.1-15.1); White Blood Count 15.5 10^3/uL (4.0-10.0)
[2021-03-16 04:22] LABS: Procalcitonin 0.14 ng/mL (0-0.5)
[2021-03-16 04:27] LABS: Slide Review Slide Review Perform
[2021-03-16 04:29] LABS: INR 1.23 (0.8-1.2)
[2021-03-16 04:30] LABS: Partial Thromboplastin Time 36.5 SECONDS (23.9-36.7)
[2021-03-16 04:37] LABS: Alanine Aminotransferase 115 U/L (0-41); Albumin Level 3.3 g/dL (3.5-5.2); Alkaline Phosphatase 67 IU/L (40-130); Anion Gap 15.4 (5-19); Aspartate Amino Transferase 41 U/L (0-40); Blood Urea Nitrogen 12 mg/dL (6-20); C Reactive Protein 93.9 mg/L (0.0-4.9); Calcium 8.6 mg/dL (8.5-10.5); Carbon Dioxide 23 mmol/L (22-29); Chloride 95 mmol/L (98-107); Globulin 3.1 g/dL (1.3-4.6); Glomerular Filtration Rate 173.9 mL/min (90-130); Glucose 150 mg/dL (65-115); Osmolality Calculated 271 mOsm/kg (285-295); Potassium 4.4 mmol/L (3.5-5.1); Sodium 129 mmol/L (136-145); Total Bilirubin 0.5 mg/dL (0.15-1.2); Total Protein 6.4 g/dL (6.6-8.7)
[2021-03-16 05:16] LABS: Ferritin 1823 ng/mL (30-400)
[2021-03-16] MEDS: enoxaparin 120 mg/0.8 mL Syringe 110 MG SUBCUT ×2 (06:33→17:00)
--- NOTE | 2021-03-16 07:35 | PC.NURSE ---
Pt resting in bed with no c/o pain or SOB. HFNC in use. AAOx4. Makes all needs known. Uses urinal and BSC. VSS. Repositions self. Will continue to monitor and assist PRN.
[2021-03-16] MEDS: pantoprazole DR 40 mg Tablet PO (08:04)
--- NOTE | 2021-03-16 10:20 | PC.NURSE ---
Pt reminded to use IS and flutter valve. Pt verbalizes understanding of importance. Will monitor.
--- NOTE | 2021-03-16 11:34 | PC.NURSE ---
Witnessed pt using IS with encouragement. Maxed out IS several times. Slight cough noted afterwards.
[2021-03-16] MEDS: dexamethasone 4 mg/mL INJ 6 MG IVP (13:09)
--- NOTE | 2021-03-16 14:17 | PC.NURSE ---
Assisted pt back to bed, standby assist and help with cords. Tolerated fair, desat to low 80's but recovered quickly to low 90's.
--- NOTE | 2021-03-16 16:44 | PM.PN ---
Subjective Subjective: Interval history: 51-year-old male with past medical history significant for COVID-19 infection diagnosed 1 week prior presented to the hospital with respiratory distress. Upon arrival patient was noted to be hypoxic requiring 6 L of O2 via nasal cannula. Chest x-ray showed bilateral infiltrative process. Patient was noted to have elevated D-dimer and thus a CT angio of chest PE protocol was performed which did not show any evidence of pulmonary embolism in again noted to have bilateral interstitial pneumonitis in addition to marginally prominent middle mediastinal and hilar lymph nodes likely to be reactive. Laboratory workup on arrival showed a WBC of 8.7, hemoglobin of 19.1, hematocrit of 52.8 and a platelet count of 217. Sodium 135, potassium 3.6, chloride 97, bicarb 22, BUN 10 and creatinine of 0.6. Glucose of 135. Lactic acid of 1.7. Arterial blood gases showed a pH of 7.50, pCO2 of 31.4, PO2 of 76.6 and a bicarb of 24.2. This was while on 5 L of O2. Patient was started on Remdesivir 5 day protocol in addition to Decadron 6 mg IV q24hr. Upon admission patient was noted to have have increasing respiratory distress with hypoxia. He was eventually requiring high flow NC. Subjective: 03/13/21 Patient was on airvo. No new clinical events overnight. No fever, or chills. 03/14/21 No new clinical events overnight. Patient noted chills. 03/15/21 No new clinical events overnight. 03/16/21 Patient remained stable overnight however remained on Airvo Medications: Reviewed: Yes Vitals/I&O/Wt Last Vital Signs Temp 98.7 F 03/16/21 16:00 Pulse 76 03/16/21 16:00 Resp 21 H 03/16/21 15:26 BP 130/76 03/16/21 16:00 Pulse Ox 93 03/16/21 16:00 03/16/21 03/16/21 03/16/21 06:59 14:59 22:59 Intake Total 480 / 480 Output Total 400 / 1200 350 / 350 Balance -400 / -150 130 / 130 Weight last 48 hrs Weight 113.398 kg Weight 116.204 kg Physical Exam Narrative: EXAM NARRATIVE: General - Alert, awake and oriented x 3 on HFNC HEENT: Grossly unremarkable CVS : RRR Chest : CTABL ABD : Soft NT,ND Ext : No edema Data : 03/16/21 03:30 03/16/21 03:30 A&P Assessment and plan (1) Pneumonia due to COVID-19 virus: Overnight with increasing 02 requirements Continue remdisivir 200mg x 1 followed by 100mg daily for total 5 days dexamtheasone 6mg IVP qd CRP noted at 70 today, trend with am labs, if trends up or 02 requirements increasing may consider tocilizumab Empiric ceftriaxone Advair, spiriva inhalers Full dose lovenox until CTA can exclude PE Supplemental 02 to keep saturation >92% CBC in am Wean HFNC as tolerated. Repeat labs in am GI ppx: Protonix DVT ppx: Lovenox Status: Acute Attestations Medical Necessity Statement*: Continue hospitalization for management of acute respiratory failure req supplemental 02 on HFNC Time Spent in Patient Care: Greater than 35 minutes (>than 50% of time spent in counselling and/or direct pt care on unit). 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
[2021-03-16] MEDS: cefTRIAXone 1,000 MG in sodium chloride 0.9% (plus) 50 ML 100 MG IV (17:01)
--- NOTE | 2021-03-16 19:03 | PC.NURSE ---
Report given to Ruiz ZHU. Pt resting quietly, no issues noted.
--- NOTE | 2021-03-16 19:05 | PC.NURSE ---
Report given to Ruiz ZHU.
[2021-03-17] VITALS (33 sets, daily range): BP systolic 113–134; BP diastolic 64–87; PULSE 52–127; RESP 16–38; TEMP 36.7–37.3; O2SAT 84–94; BMI 34.0
[2021-03-17] MEDS: acetaminophen 325 mg Tablet 650 MG PO ×3 (00:59→20:11)
[2021-03-17] MEDS: enoxaparin 120 mg/0.8 mL Syringe 110 MG SUBCUT ×2 (05:49→17:34)
--- NOTE | 2021-03-17 07:23 | PC.NURSE ---
Report received from Ruiz ZHU, pt resting in bed, AAOx4. Makes all needs known. PT instructed to use IS, performed well and tolerated well with slight cough noted afterwards. VSS. HFNC in use. Uses urinal and BSC PRN. No issues noted. Will continue to monitor and assist PRN.
[2021-03-17] MEDS: pantoprazole DR 40 mg Tablet PO (08:03)
--- NOTE | 2021-03-17 10:34 | PC.NURSE ---
Pt became SOB while using urinal. Nc was off to side of nose as well. Pt educated to make sure that he ensures NC is in place. O2 sat dropped down to 70%, recovered to 89% at this time.
--- NOTE | 2021-03-17 12:17 | PC.NURSE ---
Pt encuraged to ambulate to chair for meals. Has refused thus far today. States that he will get up for dinner .
[2021-03-17] MEDS: dexamethasone 4 mg/mL INJ 6 MG IVP (13:34)
[2021-03-17] MEDS: cefTRIAXone 1,000 MG in sodium chloride 0.9% (plus) 50 ML 100 MG IV (17:34)
--- NOTE | 2021-03-17 17:58 | PC.NURSE ---
Pt up to chair with standby assist. Tolerated fair. Pt appears down today and lacking energy. MD notified earlier during her rounds. Spoke with pt and about possible LTAC placement. Will continue to monitor.
--- NOTE | 2021-03-17 18:23 | PC.NURSE ---
Assisted back to bed after meal, tolerated well. Encouraged pt to remain optimistic and to follow through with all parts of treatment plan including IS and flutter valve.
--- NOTE | 2021-03-17 19:11 | PM.PN ---
Subjective Subjective: Interval history: very winded with ANY activity. Denies pain Vitals/I&O/Wt Last Vital Signs Temp 99.2 F 03/17/21 16:00 Pulse 102 H 03/17/21 16:00 Resp 21 H 03/17/21 16:00 BP 127/87 03/17/21 16:00 Pulse Ox 90 03/17/21 16:00 03/17/21 03/17/21 03/17/21 06:59 14:59 22:59 Intake Total 600 / 600 410 / 1010 Output Total 600 / 1175 275 / 275 225 / 500 Balance -600 / -405 325 / 325 185 / 510 Weight last 48 hrs Weight 110.875 kg Weight 110.875 kg Weight 113.398 kg Physical Exam Narrative: EXAM NARRATIVE: Appears stated age no acute distress. Heart regular normal S1-S2 without murmurs clicks gallops or rubs Lungs: Clear to auscultation without wheezes rales or rhonchi Abdomen: Soft nontender nondistended normal active bowel sounds Extremities no clubbing cyanosis or edema Data : 03/16/21 03:30 03/16/21 03:30 A&P Assessment and plan (1) Pneumonia due to COVID-19 virus: HFNC at 50 L at 80% completed remdisivir dexamtheasone 6mg IVP qd CRP was 70 trend with am labs, if trends up or 02 requirements increasing may consider tocilizumab Empiric ceftriaxone Advair, spiriva inhalers Wean HFNC has not been tolerated. consult CM/SW for transfer to LTACH monitor labs GI ppx: Protonix DVT ppx: Lovenox Status: Acute Attestations Medical Necessity Statement*: pt remains in acute respiratory failure due to COVID 19. 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
[2021-03-17] MEDS: temazepam 15 mg Capsule PO (20:11)
[2021-03-17] MEDS: benzonatate 100 mg Capsule PO (22:23)
[2021-03-18] VITALS (34 sets, daily range): BP systolic 85–138; BP diastolic 45–91; PULSE 53–117; RESP 16–32; TEMP 36.4–36.8; O2SAT 78–94; BMI 33.5
[2021-03-18] MEDS: enoxaparin 120 mg/0.8 mL Syringe 110 MG SUBCUT ×2 (06:48→18:01)
[2021-03-18] MEDS: pantoprazole DR 40 mg Tablet PO (08:04)
--- NOTE | 2021-03-18 09:55 | PC.CHAP ---
Pastoral Care Encounter/Spiritual Assessment Type of Contact [] Declined supervisor rolling room visit [] Patient/Family/Request visit [] Outpatient visit [] Follow-up visit [] Physician referral [] Code/Alert [x] Routine visit [] Staff referral [] Actively dying [] Patient sleeping [] Family support [] [] Out of room [] Palliative care [] [] Receiving care in room [] Pre-surgical visit [] Trauma [] Long length of stay [x] ICU visit [x] Other: still on ventilator and covid Relational/Emotional Strength [] Patient feels connected with others/family/visitors/staff [] Distress [] Loneliness/isolation [] Abandonment Spirituality of Patient [] Person of Yesika [] Attends Zoroastrian of their Yesika [] Believes in Prayer [] Reads Bible or Shinto materials [] There are Spiritual issues to be addressed Gear Hobber Set Up Operator Interventions [x] Prayer [] Active listening [] Non-anxious presence [] Spiritual/emotional support [] Crisis/trauma care [] Spiritual counseling [] Bereavement support [] Provided bereavement packet [] Provided Bible/devotional materials [] Provided toy/stuffed animal, coloring book to patient or family member [] Provided Communion [] Anointing/[place] [] Salvation [x] Completed spiritual assessment [] Other: Impact on Illness or Injury [] Angry [] Fearful [] Anxious [] Often cries [] Exhaustion [] Unable to work [] Unable to attend nondenominational [] Unable to walk/stand [] Unable to read [] Unable to drive [] Unable to eat/drink [] Unable to sleep [] Unable to be with family [] Patient intubated [] Other: Summary Time spent with patient
[2021-03-18] MEDS: acetaminophen 325 mg Tablet 650 MG PO ×3 (10:43→20:40)
--- NOTE | 2021-03-18 12:19 | PM.PN ---
Subjective Subjective: Interval history: Pt seen through door and discussed with RN due to COVID and conservation of PPE. RN reports he is about the same. Medications: Reviewed: Yes Vitals/I&O/Wt Last Vital Signs Temp 97.6 F 03/18/21 08:00 Pulse 91 03/18/21 12:05 Resp 16 03/18/21 12:05 BP 110/65 03/18/21 08:00 Pulse Ox 90 03/18/21 12:05 03/17/21 03/18/21 03/18/21 22:59 06:59 14:59 Intake Total 410 / 1010 Output Total 225 / 500 Balance 185 / 510 Weight last 48 hrs Weight 108.947 kg Weight 110.875 kg Weight 110.875 kg Physical Exam Narrative: EXAM NARRATIVE: Appears stated age no acute distress. Per RN no change in PE Data : 03/16/21 03:30 03/16/21 03:30 A&P Assessment and plan (1) Pneumonia due to COVID-19 virus: HFNC at 45 L at 80%; in order to transfer to LTACH they request FIO2 of 60%. Orders written to wean oxygen more than liters. completed remdisivir dexamtheasone 6mg IVP qd CRP increased to 93, may consider tocilizumab Empiric ceftriaxone Advair, spiriva inhalers consult CM/SW for transfer to LTACH- referral placed today monitor labs; NA down to 129 GI ppx: Protonix DVT ppx: Lovenox Status: Acute Attestations Medical Necessity Statement*: high oxygen requirements requiring continued hospitalization Coding Level of Care Code Acute Money Market Clerk for [facility] Diagnoses Pneumonia due to COVID-19 virus U07.1; J12.82
[2021-03-18] MEDS: dexamethasone 4 mg/mL INJ 6 MG IVP (14:56)
[2021-03-18] MEDS: cefTRIAXone 1,000 MG in sodium chloride 0.9% (plus) 50 ML 100 MG IV (18:01)
[2021-03-18] MEDS: benzonatate 100 mg Capsule PO (20:40)
[2021-03-19] VITALS (39 sets, daily range): BP systolic 113–159; BP diastolic 69–89; PULSE 49–140; RESP 17–36; TEMP 36.8–37.1; O2SAT 77–96; BMI 33.0
[2021-03-19] MEDS: enoxaparin 120 mg/0.8 mL Syringe 110 MG SUBCUT ×2 (06:27→17:09)
[2021-03-19 07:34] LABS: Hematocrit 45.6 % (42.0-52.0); Hemoglobin 15.3 g/dL (11.7-16.6); Mean Corpuscular HGB Conc 33.6 g/dL (30.0-36.0); Mean Corpuscular Hemoglobin 27.9 pg (28.0-34.0); Mean Corpuscular Volume 83.1 fL (80-94); Mean Platelet Volume 9.6 fL (7.4-10.4); Platelet Count 474 10^3/cmm (130-400); Red Blood Count 5.49 10^6/uL (4.1-5.3); Red Cell Distribution Width 12.8 % (12.1-15.1); White Blood Count 16.1 10^3/uL (4.0-10.0)
[2021-03-19 07:50] LABS: Alanine Aminotransferase 84 U/L (0-41); Alkaline Phosphatase 73 IU/L (40-130); Anion Gap 16.2 (5-19); Aspartate Amino Transferase 26 U/L (0-40); Blood Urea Nitrogen 13 mg/dL (6-20); Calcium 8.9 mg/dL (8.5-10.5); Carbon Dioxide 23 mmol/L (22-29); Chloride 98 mmol/L (98-107); Globulin 3.8 g/dL (1.3-4.6); Glomerular Filtration Rate 173.9 mL/min (90-130); Glucose 129 mg/dL (65-115); Osmolality Calculated 278 mOsm/kg (285-295); Potassium 4.2 mmol/L (3.5-5.1); Sodium 133 mmol/L (136-145); Total Bilirubin 0.5 mg/dL (0.15-1.2); Total Protein 6.8 g/dL (6.6-8.7)
[2021-03-19] MEDS: pantoprazole DR 40 mg Tablet PO (08:09)
[2021-03-19] MEDS: acetaminophen 325 mg Tablet 650 MG PO (08:09)
[2021-03-19 08:15] LABS: Slide Review Slide Review Perform
[2021-03-19 08:28] LABS: Absolute Segmented Neutrophil 14.3 10/cmm (1.6-7.1); Eosinophils 0 %; Lymphocytes 6 %; Lymphocytes Absolute 1.4 10^3/cmm (1.2-3.4); Monocytes Absolute 0.3 10^3/cmm (0.1-0.6); Segmented Neutrophils 89 %; Total Cells Counted 100 (0-100)
[2021-03-19 08:29] LABS: Absolute Neutrophil 14.3 10^3/cmm (1.4-6.5); Anisocytosis Trace; Platelet Estimate Normal (Normal)
--- NOTE | 2021-03-19 10:08 | PC.CHAP ---
Pastoral Care Encounter/Spiritual Assessment Type of Contact [] Declined male model visit [] Patient/Family/Request visit [] Outpatient visit [] Follow-up visit [] Physician referral [] Code/Alert [x] Routine visit [] Staff referral [] Actively dying [] Patient sleeping [] Family support [] [] Out of room [] Palliative care [] [] Receiving care in room [] Pre-surgical visit [] Trauma [] Long length of stay [x] ICU visit [x] Other: quarantined Relational/Emotional Strength [] Patient feels connected with others/family/visitors/staff [] Distress [] Loneliness/isolation [] Abandonment Spirituality of Patient [] Person of Yesika [] Attends Christian of their Yesika [] Believes in Prayer [] Reads Bible or Quaker materials [] There are Spiritual issues to be addressed Literacy Specialist Interventions [x] Prayer [] Active listening [] Non-anxious presence [] Spiritual/emotional support [] Crisis/trauma care [] Spiritual counseling [] Bereavement support [] Provided bereavement packet [] Provided Bible/devotional materials [] Provided toy/stuffed animal, coloring book to patient or family member [] Provided Communion [] Anointing/[place] [] Salvation [x] Completed spiritual assessment [] Other: Impact on Illness or Injury [] Angry [] Fearful [] Anxious [] Often cries [] Exhaustion [] Unable to work [] Unable to attend holiness [] Unable to walk/stand [] Unable to read [] Unable to drive [] Unable to eat/drink [] Unable to sleep [] Unable to be with family [] Patient intubated [] Other: Summary Time spent with patient
[2021-03-19] MEDS: albuterol 8 gm MDI 2 PUFF INHALATION (10:40)
--- NOTE | 2021-03-19 15:13 | ECG_ITS ---
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 Measurements Intervals Shirley Rate: 157 P: SC: QRS: 57 QRSD: 91 T: 2 QT: 274 QTc: 443 Interpretive Statements ATRIAL FIBRILLATION WITH RAPID VENTRICULAR RESPONSE WITH ABERRANT CONDUCTION OR VENTRICULAR PREMATURE COMPLEXES NONSPECIFIC ST & T-WAVE ABNORMALITY ABNORMAL RHYTHM ECG WARNING: DATA QUALITY MAY AFFECT INTERPRETATION No previous ECG available for comparison Electronically Signed On 03-19-2021 17:47:03 CDT by Aby Montalvo M.D. [email or web address]
--- NOTE | 2021-03-19 15:45 | XRR_ITS ---
PROCEDURE INFORMATION: Exam: XR Chest Exam date and time: 03/19/2021 3:45 PM Age: 51 years old Clinical indication: Condition or disease; Lung condition and disease; Other: Covid; Additional info: Covid, not improving. Hasn't had follow up TECHNIQUE: Imaging protocol: XR of the chest. Views: 1 view. COMPARISON: CR XR chest 1V portable [id number] 03/11/2021 2:26 PM FINDINGS: Lungs: Diffuse nonspecific bilateral infiltrates consistent with the stated history of COVID-19 pneumonia. Pleural spaces: Unremarkable. No pleural effusion. No pneumothorax. Heart/Mediastinum: No cardiomegaly. Bones/joints: Degenerative thoracic spine change. XR/XR chest 1V portable [id number] IMPRESSION: Diffuse nonspecific bilateral infiltrates consistent with the stated history of COVID-19 pneumonia. Infiltrates have significantly worsened when compared to 03/11/2021.
--- NOTE | 2021-03-19 15:49 | P.PN_ITS ---
Subjective Subjective: Interval history: Pt seen bedside with RN and RT also in room. on phone while in room. Pt without complaints. He is holding the HFNC in his nose. REspiratory changed to Bipap while in the room. He said that was more tolerable. asking multiple question about prognosis, transferring and then particulars about the HF tubing. I told her the water in tube was normal and he was not having a problem currently. He also denies burning in nose which she said he had. I explained the guidelines for transfer numerous times. We ended the conversation with me acknowledging how difficult this is for family and that it is challenging to understand all the criteria and guidelines in the medical profession. She voiced that she did understand. Medications: Reviewed: Yes Vitals/I&O/Wt Last Vital Signs Temp 98.4 F 03/19/21 08:00 Pulse 105 H 03/19/21 14:47 Resp 22 H 03/19/21 13:15 BP 132/81 03/19/21 13:00 Pulse Ox 95 03/19/21 14:47 03/19/21 03/19/21 03/19/21 06:59 14:59 22:59 Intake Total 838 / 838 Output Total 500 / 1100 750 / 750 Balance -500 / -350 88 / 88 Weight last 48 hrs Weight 107.303 kg Weight 108.947 kg Physical Exam Narrative: EXAM NARRATIVE: Appears stated age no acute distress. Heart regular normal S1-S2 without murmurs clicks gallops or rubs Lungs: mostly clear auscultation- better aeration today. scattered wheeze/rhonchi Abdomen: Soft nontender nondistended normal active bowel sounds Extremities no clubbing cyanosis or edema Data : 03/19/21 07:17 03/19/21 07:17 A&P Assessment and plan (1) Pneumonia due to COVID-19 virus: Pt still requiring high oxgen levels. Discussed with RN and RT. Since anticipating lenghty recovery still recommend transfer to LTACH. Needs to be stable for transfer. We switched to BIPAP with good results. Reviewed update on COVID and obtained second opinion. Recommends: ~rechecking CRP. If still elevated around 90 will start tocilizumab. ~ f/u CXR ~ return to decadron 6 mg daily for total 10 days. Give additional 3 for total 6 today and resume normal 6 mg dose tomorrow. 2 more doses. Empiric ceftriaxone - if cxr worse will broaden spectrum again. Advair, spiriva inhalers GI ppx: Protonix DVT ppx: Lovenox Status: Acute (2) Sinus tachycardia: check EGG, conssider PE due to complication of thrombotic events. Status: Acute Attestations Medical Necessity Statement*: still requires high level oxygen and hospitalization Coding Level of Care Code Acute Herbologist [facility] Diagnoses Pneumonia due to COVID-19 virus U07.1; J12.82 Sinus tachycardia R00.0
[2021-03-19 16:48] LABS: C Reactive Protein 88.1 mg/L (0.0-4.9)
[2021-03-19] MEDS: digoxin 250 mcg/ml INJ 2 mL 500 MCG IVP (17:09)
[2021-03-19] MEDS: dexamethasone 4 mg/mL INJ 3 MG IVP (17:09)
[2021-03-19] MEDS: tocilizumab 800 MG in sodium chloride 0.9% (100 ml) 100 ML 140 MG IV (17:20)
[2021-03-19 18:57] LABS: Magnesium 2.3 mg/dL (1.7-2.3)
[2021-03-19 19:29] LABS: Troponin(5th) Baseline 16 ng/L (0-15)
[2021-03-19] MEDS: piperacillin-tazobactam 3.375 GM in sodium chloride 0.9% (plus) 50 ML IV (20:08)
[2021-03-19 20:24] LABS: Troponin 5 2HR 21.72 ng/L (0-15); Troponin 5 2HR Delta 5.72 ABS# (0-10)
--- NOTE | 2021-03-19 23:35 | PC.NURSE ---
Non Admin; PM dose of 500mcg Digoxin IVP order held based on orders from MD Miya.
[2021-03-20] VITALS (39 sets, daily range): BP systolic 126–139; BP diastolic 69–91; PULSE 55–100; RESP 15–33; TEMP 35.8–36.8; O2SAT 88–97
[2021-03-20 00:04] LABS: Troponin 5 6HR 12.83 ng/L (0-15); Troponin 5 6HR Delta -3.17 ng/L (0-12)
--- NOTE | 2021-03-20 00:08 | PC.NURSE ---
New Orders; Venous duplex ultrasound ordered for right lower arm extremity per MD Miya orders. Orders placed in chart as indicated.
--- NOTE | 2021-03-20 00:10 | PC.NURSE ---
RN found patient's arm to be swollen with increased redness/coolness near IV insertion site during shift change/nursing assessment. IV attempted flushed, with immediate pain felt by patient. Patient reports severe pain in arm surrounding IV insertion site. IV removed along with second IV based on infiltration of both sites. Area cleaned, pressure dressings applied to both sites, with warm wash cloths applied to area to facilitate in excretion of infiltrated meds. New IV placed in opposite arm. MD notified. RN continues to regularly monitor site, with updates provided to MD. As of this early AM, patient reports little to no pain, with site decreasing in size greatly. Small rash noted, with surrounding skin patient's normal skin tone. Good cap refill, warmth, and feeling in distal fingers. MD notified. New order given for Venous ultrasound in AM. Patient currently resting. No needs verbalized at this time.
[2021-03-20] MEDS: piperacillin-tazobactam 3.375 GM in sodium chloride 0.9% (plus) 50 ML IV ×3 (04:44→20:34)
--- NOTE | 2021-03-20 05:00 | USCV_ITS ---
Hannah Archer Age: 51 Gender: M : 1970 Exam Date: 03/20/2021 06:02 Ordering Phys: Zoe Holliday MD Technologist: Yeny Ruano [place] [facility] [place]: Swelling pain redness right arm HISTORY: Upper extremity pain. Upper extremity swelling. PROCEDURES: Venous duplex imaging was performed in only the right upper extremity. The following venous structures were evaluated: internal jugular vein, subclavian vein, axillary vein, and brachial veins. In addition, the radial vein and ulnar vein. FINDINGS: Normal 2-D, color Doppler and phasicity noted in ther right upper extremity venous system extending from the right internal jugular vein through the main forearm. No thrombosis or occlusion noted. CONCLUSIONS No evidence of thrombus of the right upper extremity veins. Roger Mantilla MD (Electronically Signed) Final Date: 20 March 2021 09:46 S
[2021-03-20] MEDS: enoxaparin 120 mg/0.8 mL Syringe 110 MG SUBCUT ×2 (05:46→17:51)
[2021-03-20 06:30] LABS: Digoxin 0.8 ng/mL (0.6-1.2)
--- NOTE | 2021-03-20 06:32 | PC.NURSE ---
RN spoke with patient and patient's regarding current POC. Education on need to decrease O2 status for transport to LTAC/[facility] facility could be accepted. Patient educated on need for sitting in chair and completing Respiratory exercises as indicated . Xray report and results discussed with patient, with explanation of respiratory component including the need for Heated High Flow O2 therapy. Patient verbalized understatement, with verbalization of patient POC. asked RN it there was a possibility of being able to come and see patient while in Covid isolation, like she had done before. RN stated she would mention this to MD, but discussed facilities covid protocols. Report given to alexandra Martin. No verbalized needs at this time.
[2021-03-20] MEDS: albuterol 8 gm MDI 2 PUFF INHALATION ×3 (07:45→20:31)
--- NOTE | 2021-03-20 08:10 | PC.NURSE ---
Discussed with pt getting up to chair, IS and flutter valve to improve his respiratory status. Pt stated he was doing the IS and flutter valve. Pt declined OOB, stating he was fine where he was at.
--- NOTE | 2021-03-20 08:37 | ECG_ITS ---
[facility] Test Date: 2021-03-20 Pat Name: Hannah Archer Department: Room: [facility] Gender: Male Station Installer: : 1970 Requested By: Stewart Fowler Order Number: [id number] Barbra MD: Galileo Pelaez M.D. Measurements Intervals [place] Rate: 92 P: 30 MN: 175 QRS: 42 QRSD: 101 T: -40 QT: 373 QTc: 463 Interpretive Statements SINUS RHYTHM ST DEVIATION AND MODERATE T-WAVE ABNORMALITY, CONSIDER ANTEROLATERAL ISCHEMIA [-0.1+ mV T WAVE IN V3-V6] ST DEVIATION AND MODERATE T-WAVE ABNORMALITY, CONSIDER INFERIOR ISCHEMIA [-0.1+ mV T WAVE IN II/aVF] Compared to ECG 03/19/2021 15:16:47 Possible ischemia now present Atrial fibrillation no longer present Aberrant conduction of supraventricular beat(s) no longer present Ventricular premature complex(es) no longer present T-wave abnormality still present Electronically Signed On 03-20-2021 18:30:33 CDT by Galileo Pelaez M.D. [id number]
--- NOTE | 2021-03-20 08:39 | PC.CHAP ---
Pastoral Care Encounter/Spiritual Assessment Type of Contact [] Declined boarding machine operator visit [] Patient/Family/Request visit [] Outpatient visit [] Follow-up visit [] Physician referral [] Code/Alert [x] Routine visit [] Staff referral [] Actively dying [] Patient sleeping [] Family support [] [] Out of room [] Palliative care [] [] Receiving care in room [] Pre-surgical visit [] Trauma [] Long length of stay [x] ICU visit [x] Other: quarantined Relational/Emotional Strength [] Patient feels connected with others/family/visitors/staff [] Distress [] Loneliness/isolation [] Abandonment Spirituality of Patient [] Person of Yesika [] Attends Christianity of their Yesika [] Believes in Prayer [] Reads Bible or Yarsani materials [] There are Spiritual issues to be addressed Paid Search Marketing Strategist Interventions [x] Prayer [] Active listening [] Non-anxious presence [] Spiritual/emotional support [] Crisis/trauma care [] Spiritual counseling [] Bereavement support [] Provided bereavement packet [] Provided Bible/devotional materials [] Provided toy/stuffed animal, coloring book to patient or family member [] Provided Communion [] Anointing/[place] [] Salvation [x] Completed spiritual assessment [] Other: Impact on Illness or Injury [] Angry [] Fearful [] Anxious [] Often cries [] Exhaustion [] Unable to work [] Unable to attend mormon [] Unable to walk/stand [] Unable to read [] Unable to drive [] Unable to eat/drink [] Unable to sleep [] Unable to be with family [] Patient intubated [] Other: Summary patient setting up in bed... Time spent with patient
[2021-03-20] MEDS: pantoprazole DR 40 mg Tablet PO (10:44)
--- NOTE | 2021-03-20 10:46 | PC.NURSE ---
MAR other delay related to previous med scan at 0940 not being saved and meds needing to be scanned again.
--- NOTE | 2021-03-20 12:00 | PC.NURSE ---
Offered to assist pt out of bed to chair for lunch. Pt encouraged to get OOB to chair, he was also asked about the IS and flutter valve. Pt declined to get out bed stating he was comfortable where he was, he stated he was using IS and flutter valve freqnetly on his own volition. This has not be observed by staff today.
[2021-03-20] MEDS: dexamethasone 4 mg/mL INJ 6 MG IVP (14:33)
--- NOTE | 2021-03-20 14:46 | PC.NURSE ---
Pt used the IS two times, 1500 reached. Pt agreed to get out of bed and sit in chair for dinner.
--- NOTE | 2021-03-20 16:02 | P.PN_ITS ---
Subjective Subjective: Interval history: Patient was seen from the doorway due to Covid status and limited PPE use patient has no complaints today. To me S. He has not been up out of bed. And he has not been using his incentive spirometer and Acapella. Vitals/I&O/Wt Last Vital Signs Temp 96.5 F L 03/20/21 12:00 Pulse 82 03/20/21 14:43 Resp 20 H 03/20/21 14:30 BP 126/91 03/20/21 12:00 Pulse Ox 95 03/20/21 14:30 03/20/21 03/20/21 03/20/21 06:59 14:59 22:59 Intake Total 350 / 1678 850 / 850 Output Total 650 / 2050 650 / 650 Balance -300 / -372 200 / 200 Weight last 48 hrs Weight 106.836 kg Weight 107.303 kg Physical Exam Narrative: EXAM NARRATIVE: Patient appears more comfortable today than any other day of seeing him this week. His respiratory rate while elevated is improved. There is no audible wheeze. No pain. His color looks good and his spirits look good. Data : 03/19/21 07:17 03/19/21 07:17 Other Labs: CRP 88 Micro: Microbiology 03/19/21 18:05 MRSA Culture - Final Nose CXR: My impression: Worsening bilateral interstitial infiltrates. Radiologist's impression: IMPRESSION: Diffuse nonspecific bilateral infiltrates consistent with the stated history of COVID-19 pneumonia. Infiltrates have significantly worsened when compared to 03/11/2021. EKG 2: My Interpretation: This morning's EKG appears to be wandering atrial pacemaker now that his rate has returned to normal. The P waves do look slightly different. This diagnosis would correlate with the events of yesterday since tachycardia occurred while on the BiPAP when he became hypoxic again. Compound Coating Machine Offbearer Interpretation: no further afib Prior ECG tracings: available for review 03/20/21 13:08 A&P Assessment and plan (1) Pneumonia due to COVID-19 virus: Patient was started on Tocilizumab treatment yesterday due to continued high CRP and worsened infilrates. Many discussions with RN's and RT over last 2 days regarding respiratory status and oxygen therapy. ~Patient expected to have prolonged recovery. ~patient has been stable for many days ~ patient is slowly weaning down on FIO2 and flow ~ pt is a suitable candidate for LTACH IS ~ [facility] liasion expressed concern for transfer and mentioned certain FIO2 and liters that he would suggest HOWEVER given the patients stability over the last few days this physician believes he is stable for transfer and if there is concern there can be discussion with EMT personnel and/or [facility] physicia n/provider. pt was strongly encourage to get out of bed as instructed He demonstrated use of incentive spirometry and I re-educated him on use. He demonstrated understanding. Status: Acute (2) Multifocal atrial tachycardia determined by electrocardiography: I believe this was actually the diagnosis yesterday instead of afib now that EKG done at slower rate. NO treatment except for managment of hypoxia. Status: Acute Attestations Medical Necessity Statement*: Pt remains critically ill and requiring high levels of oxygen unable to be provided at other level of care. Pt will remain in hospital setting for likely many weeks. Coding Level of Care Code Acute C Developer for [facility] Fwd Diagnoses Pneumonia due to COVID-19 virus U07.1; J12.82 Multifocal atrial tachycardia determined by electrocardiography I47.1
--- NOTE | 2021-03-20 17:20 | PC.NURSE ---
Pt out of bed to chair, stand by assist. O2 sats stayed 92% or better during exertion.
--- NOTE | 2021-03-20 19:30 | PC.NURSE ---
Report given to AUDRA Rees.
--- NOTE | 2021-03-20 19:50 | PC.NURSE ---
Shift summary: Pt has rested in bed most of the day. He finally agreed to sit in chair at evening meal. He is still using heated high flow. O2 at 50L and 62%. He was 45L and 72% this am. Lung sounds are clear upper lungs and very diminished in bases. His voice is much stronger since Wednesday (March 16) where he would get short of breath with extensive talking. Today he carried on a conversation for a couple hours on the telephone with no changes on O2 sats. He can reach 1500 on the IS. He requires ice chips frequently, he stated it helps his mouth and throat. He has ate most of his meals. Adequate urine output this shift. No BM noted.
[2021-03-21] VITALS (32 sets, daily range): BP systolic 116–179; BP diastolic 71–98; PULSE 45–106; RESP 12–34; TEMP 36.4–36.8; O2SAT 82–96
[2021-03-21] MEDS: piperacillin-tazobactam 3.375 GM in sodium chloride 0.9% (plus) 50 ML IV ×3 (03:08→19:59)
[2021-03-21] MEDS: enoxaparin 120 mg/0.8 mL Syringe 110 MG SUBCUT ×2 (05:53→17:47)
[2021-03-21 06:14] LABS: Basophils # 0.1 10^3/uL (0.0-0.1); Basophils % 0.3 %; Eosinophils # 0.2 10^3/uL (0.0-0.8); Hematocrit 41.4 % (42.0-52.0); Hemoglobin 13.8 g/dL (11.7-16.6); Lymphocytes # 1.3 10^3/uL (0.8-4.8); Lymphocytes % 7.4 %; Mean Corpuscular HGB Conc 33.3 g/dL (30.0-36.0); Mean Corpuscular Hemoglobin 27.9 pg (28.0-34.0); Mean Corpuscular Volume 83.6 fL (80-94); Mean Platelet Volume 9.5 fL (7.4-10.4); Monocytes # 0.8 10^3/uL (0.2-0.9); Monocytes % 4.4 %; Neutrophils % 81.2 %; Nucleated Red Blood Cells % 0 %; Platelet Count 486 10^3/cmm (130-400); Red Blood Count 4.95 10^6/uL (4.1-5.3); White Blood Count 17.6 10^3/uL (4.0-10.0)
[2021-03-21 06:34] LABS: Alanine Aminotransferase 120 U/L (0-41); Albumin Level 2.9 g/dL (3.5-5.2); Alkaline Phosphatase 86 IU/L (40-130); Anion Gap 13.2 (5-19); Aspartate Amino Transferase 46 U/L (0-40); Blood Urea Nitrogen 14 mg/dL (6-20); Calcium 8.2 mg/dL (8.5-10.5); Carbon Dioxide 25 mmol/L (22-29); Chloride 97 mmol/L (98-107); Globulin 3.1 g/dL (1.3-4.6); Glomerular Filtration Rate 173.9 mL/min (90-130); Glucose 100 mg/dL (65-115); Osmolality Calculated 273 mOsm/kg (285-295); Potassium 4.2 mmol/L (3.5-5.1); Sodium 131 mmol/L (136-145); Total Bilirubin 0.5 mg/dL (0.15-1.2)
[2021-03-21 06:44] LABS: Slide Review Slide Review Perform
[2021-03-21] MEDS: albuterol 8 gm MDI 2 PUFF INHALATION ×2 (08:33→19:34)
[2021-03-21] MEDS: pantoprazole DR 40 mg Tablet PO (08:46)
--- NOTE | 2021-03-21 10:30 | PC.NURSE ---
Pt's O2 sat 79-82%. Pt stated he had the cannula off for a minute. Encouraged pt to use IS, he used it 5x, 1500ml goal reached. Pt agreeable to get out of bed to chair. To chair without difficulty. O2 sats slowly recovered. O2 sat 86-88% for 20 minutes before 90% occurred. Pt stated he felt fine with no shortness of breath.
--- NOTE | 2021-03-21 12:57 | PC.NUTR ---
Nutrition reassessment: Nurse reports that pt is not consuming Ensure supplement. Will stop sending at this time. Po intakes at meals have improved from 47% average at first assessment to 77% average at this time. See RD assessments for further details.
--- NOTE | 2021-03-21 13:35 | PC.NURSE ---
Pt back to bed without difficulty. Pt agreeabel to getting up to chair again before dinner.
[2021-03-21] MEDS: dexamethasone 4 mg/mL INJ 6 MG IVP (14:54)
--- NOTE | 2021-03-21 17:15 | PC.NURSE ---
Pt out of bed to chair without difficulties.
--- NOTE | 2021-03-21 17:53 | P.PN_ITS ---
Subjective Subjective: Interval history: Feeling better Medications: Reviewed: Yes Vitals/I&O/Wt Last Vital Signs Temp 97.8 F 03/21/21 16:00 Pulse 92 03/21/21 16:00 Resp 20 H 03/21/21 16:00 BP 118/77 03/21/21 16:00 Pulse Ox 93 03/21/21 16:00 03/21/21 03/21/21 03/21/21 06:59 14:59 22:59 Intake Total 2012 1050 / 1050 50 / 1100 Output Total 425 / 1675 650 / 650 Balance -137 / 338 400 / 400 50 / 450 Weight last 48 hrs Weight 110.495 kg Weight 106.836 kg Physical Exam Narrative: EXAM NARRATIVE: General - Alert, awake and oriented x 3 on HFNC HEENT: Grossly unremarkable CVS : RRR Chest : CTABL ABD : Soft NT,ND Ext : No edema Data : 03/21/21 06:05 03/21/21 06:05 A&P Assessment and plan (1) Pneumonia due to COVID-19 virus: Patient was started on Tocilizumab treatment yesterday due to continued high CRP and worsened infilrates. Many discussions with RN's and RT over last 2 days regarding respiratory status and oxygen therapy. ~Patient expected to have prolonged recovery. ~patient has been stable for many days ~ patient is slowly weaning down on FIO2 and flow ~ pt is a suitable candidate for LTACH IS Continue to wean fio2 Status: Acute (2) Multifocal atrial tachycardia determined by electrocardiography: I believe this was actually the diagnosis yesterday instead of afib now that EKG done at slower rate. NO treatment except for managment of hypoxia. Status: Acute Attestations Medical Necessity Statement*: continue hspitalization for managment of hypoxia Time Spent in Patient Care: Greater than 35 minutes (>than 50% of time spent in counselling and/or direct pt care on unit) . Coding Level of Care Code Acute Commercial Retoucher for [facility] Diagnoses Pneumonia due to COVID-19 virus U07.1; J12.82 Multifocal atrial tachycardia determined by electrocardiography I47.1
--- NOTE | 2021-03-21 19:38 | PC.NURSE ---
Report given to AUDRA Butt. Pt observed using IS without prompting from staff.
--- NOTE | 2021-03-21 19:39 | PC.NURSE ---
Shift summary: Pt seems upbeat today. He has sat in the chair twice today, The first time 3 hours, Then in chair before dinner and he continues to sit up at this time. He has only sleep for a brief time today, approx 30 minutes. More air movement in bases noted on auscultation today. He remains on HHF , now at 45% and 40L. Sinus rhythm n noted on monitor. Afebrile. His urine output is adequate, but it remains dark yellow to cristal. He had a large hardened Bm today.
[2021-03-22] VITALS (29 sets, daily range): BP systolic 93–163; BP diastolic 65–98; PULSE 55–100; RESP 13–28; TEMP 36.3–36.6; O2SAT 86–95; BMI 33.7
[2021-03-22] MEDS: piperacillin-tazobactam 3.375 GM in sodium chloride 0.9% (plus) 50 ML IV ×3 (04:59→20:59)
[2021-03-22] MEDS: enoxaparin 120 mg/0.8 mL Syringe 110 MG SUBCUT ×2 (05:00→17:14)
--- NOTE | 2021-03-22 05:38 | PC.NURSE ---
Shift Summary Patient had an uneventful evening. He had no reports of pain and slept for most of the evening. He is on heated high flow nasal cannula at 40 liters/min and 45% FIO2. He has one IV site in the left wrist and Zosyn is infusing at 12.5 mls/hr. Patient had 1070 mls bright yellow urine out all evening from the urinal and no bowel movement. He is alert and oriented x4 and has no skin issues at this time.
[2021-03-22] MEDS: albuterol 8 gm MDI 2 PUFF INHALATION ×2 (07:48→20:07)
[2021-03-22] MEDS: pantoprazole DR 40 mg Tablet PO (08:06)
--- NOTE | 2021-03-22 11:42 | PM.PN ---
Subjective Subjective: Interval history: Feeling better Medications: Reviewed: Yes Vitals/I&O/Wt Last Vital Signs Temp 97.3 F L 03/22/21 20:00 Pulse 82 03/22/21 22:00 Resp 21 H 03/22/21 22:00 BP 121/82 03/22/21 22:00 Pulse Ox 91 03/22/21 22:00 03/22/21 03/22/21 03/23/21 14:59 22:59 06:59 Intake Total 50 / 50 400 / 450 Output Total 650 / 650 1225 / 1875 Balance -600 / -600 -825 / -1425 Weight last 48 hrs Weight 109.911 kg Weight 110.495 kg Physical Exam Narrative: EXAM NARRATIVE: General - Alert, awake and oriented x 3 on HFNC HEENT: Grossly unremarkable CVS : RRR Chest : CTABL ABD : Soft NT,ND Ext : No edema Data : 03/21/21 06:05 03/21/21 06:05 A&P Assessment and plan (1) Pneumonia due to COVID-19 virus: Patient was started on Tocilizumab treatment yesterday due to continued high CRP and worsened infilrates. decreased to 8L Continue to wean fio2 home 02 eval in am Status: Acute (2) Multifocal atrial tachycardia determined by electrocardiography: I believe this was actually the diagnosis yesterday instead of afib now that EKG done at slower rate. NO treatment except for managment of hypoxia. Status: Acute Attestations Medical Necessity Statement*: continur hospitaliztion fro management of resp failure Coding Level of Care Code Acute Marketing Operations Associate for [facility] F[facility] Diagnoses Pneumonia due to COVID-19 virus U07.1; J12.82 Multifocal atrial tachycardia determined by electrocardiography I47.1
[2021-03-22] MEDS: dexamethasone 4 mg/mL INJ 6 MG IVP (14:55)
[2021-03-23] VITALS (11 sets, daily range): BP systolic 106–117; BP diastolic 61–92; PULSE 59–96; RESP 16–24; TEMP 36.6–36.8; O2SAT 84–97
[2021-03-23] MEDS: piperacillin-tazobactam 3.375 GM in sodium chloride 0.9% (plus) 50 ML IV (05:10)
[2021-03-23] MEDS: enoxaparin 120 mg/0.8 mL Syringe 110 MG SUBCUT (05:11)
--- NOTE | 2021-03-23 14:30 | PC.NURSE ---
Discharge Pt has been given discharge instructions. All of the pt's current questions have been answered. IV has been taken out. Pt is currently getting dressed and is waiting for home O2 to be delivered. has been contacted by pt.
--- NOTE | 2021-03-23 18:20 | P.DS_ITS ---
Discharge Providers Date of Admission: 03/11/21 14:29 Date of Discharge: March 23, 2021 Attending Provider at Admission: Tika Olivas MD Attending Provider at Discharge: Zoe Holliday Diagnoses at Discharge Discharge Diagnosis (1) Pneumonia due to COVID-19 virus: Status: Resolved (2) Multifocal atrial tachycardia determined by electrocardiography: Status: Resolved Reason for Visit Reason for Visit: DYSPNEA, COVID + Hospital Course Hospital Course 51-year-old male with a past medical history significant forRecent diagnosis of COVID-19 infection 1 week prior presented to the hospital with progressively worsening respiratory distress. This is associated with fever, chills, productive cough and intermittent episodes of diarrhea. Upon arrival to emergency roomHis initial laboratory workup showed a WBC of 8.7, hemoglobin of 19.1, hematocrit of 52.8 and a platelet count of 217. Sodium 135, potassium 3.6, chloride 97, bicarb 22, BUN 10 and creatinine of 0.6. Glucose of 135. Patient was noted to be hypoxic requiring initially 6 L of O2 via nasal cannula however subsequently high-flow nasal cannula imaging studies included a chest x- ray which showed no acute abnormality however subsequently a CT angio of chestWas performed which did not show any evidence of pulmonary embolism however bilateral interstitial pneumonitis was seen. Additionally marginally prominent may toe mediastinal and hilar lymph nodes were seen as well suspected to be reactive in nature.Patient was admitted to intensive care unit due to high O2 requirements. He was started on 5 day course of Remdesivir. In addition was started on Decadron 6 mg IV daily. Patient was slow to recover. For the most part remained on high-flow. Noted to have significant desaturation with any ambulation. Intermittently was noted to have multifocal atrial tachycardia. He was given digoxin after which decided for the most part resolved. Addition was continued on anticoagulation due to risk of thromboembolism given underlying COVID-19 infection. Due to slow improvement patient was given Actemra treatment on 03/20/2021. Patient was noted to have a high CRPAnd worsening infiltrates on chest x-ray. After this intervention patient slowly improved at which point his O2 level was decreased to 4 L at rest and 6 L with any ambulation. Patient was wanting to be discharged home at which point home O2 eval was performed, home oxygen was arranged and patient was discharged. Physical Exam Narrative: EXAM NARRATIVE: General - Alert, awake and oriented x 3 on 4L via NC HEENT: Grossly unremarkable CVS : RRR Chest : CTABL slight diffuse fine crackles. ABD : Soft NT,ND Ext : No edema Discharge Data Data Completed and Pending: Completed Studies During Hospitalization Category Date Time Status CT angio chest PE protcl [id number] Rout ine Cat Scan 03/11/21 17:33 Completed XR chest 1V miguel ble [id number] Stat Exams 03/11/21 13:34 Completed XR chest 1V miguel ble [id number] Stat Exams 03/19/21 15:45 Completed US venous duplex upper extremity RT [CV venous duplex Ultrasound 03/20/21 05:00 [place] [id number]] Rout ine Vitals: Last Vital Signs Temp 98.3 F 03/23/21 15:51 Pulse 90 03/23/21 15:51 Resp 16 03/23/21 15:51 BP 106/61 03/23/21 15:51 Pulse Ox 84 L 03/23/21 10:07 Discharge Plan Discharge Patient Disposition: Home Condition: Stable Prescriptions: New Advair Diskus 250-50 mcg/dose Blister With Device 1 puff inhalation BID.RESPIRATORY Qty: 1 RF: 0 pantoprazole 40 mg Tablet,Delayed Release (Dr/Ec) 40 mg PO DAILY Qty: 14 RF: 0 Spiriva with HandiHaler 18 mcg Capsule, W/Inhalation Device 18 mcg inhalation DAILY.RESPIRATORY Qty: 1 RF: 0 Eliquis 2.5 mg tablet 2.5 mg PO BID Qty: 14 RF: 0 Decadron 0.5 mg tablet 0.5 mg PO DAILY Qty: 18 RF: 0 Discharge Orders: Discharge Order (Routine); Ordered 03/23/21 Ordered By: Zoe Holliday Other Ambulatory Orders: DME: Oxygen (Order) Location: None Selected Ordered By: Zoe Holliday Referrals: Odalis Cuenca DO [Physician] - Lauren Mcdonald MD [Physician] - 1 week Discharge Diet: As Directed Discharge Activity: Increase activity as tolerated Patient Instructions: Prednisone (By mouth), Pantoprazole (By mouth), Fluticasone/Salmeterol (By breathing), Tiotropium (By breathing), Apixaban (By mouth), Opioid Safety Activity Restrictions/Additional Instructions: Return to hospital if any if any recurrence of respiratory distress, trouble breathing or oxygen saturations staying below 90% at home. Also return if any recurrence of fever, chills, nausea vomiting. Discharge Attestations Time Spent in Discharge Care*: greater than 30 min Specific Discharge Activities: educating patient, educating and/or supporting family/caregiver, discussing with pcp/other providers, discussing with telehealth case manager/social workers/dc planners, documenting/other paperwork and evaluating patient/reviewing data Status at Discharge: Cognitive status at discharge: cognitively intact , Behavioral status at discharge: cooperative , Overall status at discharge: patient is progressing back to baseline Quality Metrics Clinical Quality Measures During this hospital stay, did patient experience: None Coding Level of Care Code Acute Chg FW DC note Diagnoses Pneumonia due to COVID-19 virus U07.1; J12.82 Multifocal atrial tachycardia determined by electrocardiography I47.1
== END 2021-03-23 15:51 | disposition home or self-care (01) | DRG 177 ==
LOC: ER 14:10 → ICU 15:27
PROVIDERS: Hospitalist; Internal Medicine; Admitting Provider Student in an Organized Health Care Education/Training Program; Emergency Provider Family Medicine; Visit Provider Hospitalist
DX: U07.1 COVID-19 (principal); J12.82 Pneumonia due to coronavirus disease 2019; J96.01 Acute respiratory failure with hypoxia; I47.1 Supraventricular tachycardia; M79.89 Other specified soft tissue disorders; R59.0 Localized enlarged lymph nodes
CPT/HCPCS: 36415; 36600; 71045; 71275; 80051; 80053; 80162; 82330; 82728; 82803; 82805; 83520; 83605; 83615; 83735; 84145; 84484; 85007; 85025; 85378; 85610; 85730; 86140; 87641; 93005; 93971; 94640; 94660; 94664; 96365; 96372; 99285; J0696; J1100; J1160; J1650; J2270; J2405; J2543; J3262; J3535; Q9967